=== PATIENT | female | born 1980 | race Caucasian/White ===

== ENCOUNTER 2018-02-15 14:24 | Emergency (ER) | payer OTHER ==
[~2018-02-15] VITALS: Ht 172.7 cm; Wt 93.0 kg
[2018-02-15 14:41] VITALS: BP 150/83
--- NOTE | 2018-02-15 14:54 | ER.PDOC ---
General Chief Complaint: Skin Rash/Abscess Stated Complaint: INSECT BITE Time seen by MD: 14:45 Source: patient Exam Limitations: no limitations History of Present Illness Initial Comments Pt noticed a red, painful area on left gluteal region, which has grown over the past week. Pt and tried to open that, with no success Timing/Duration: unsure, 1 week Location: LLE Quality: painful Identified Cause: no Allergies: Coded Allergies: Penicillins (Verified Allergy, Intermediate, Hives, 02/15/18) codeine (Verified Allergy, Intermediate, 02/15/18) Past Medical History Medical History: no pertinent history Surgical History: no surgical history LMP (females 10-50): 1 month Social History Smoking: non-smoker Alcohol Use: occassionally Drug Use: none Constitutional: no symptoms reported EENTM: no symptoms reported Respiratory: no symptoms reported Cardiovascular: no symptoms reported Gastrointestinal: no symptoms reported Genitourinary: no symptoms reported Musculoskeletal: no symptoms reported Skin: see HPI Psychiatric/Neurological: no symptoms reported Endocrine: no symptoms reported Hematologic/Lymphatic: no symptoms reported Physical Exam General Appearance: alert, no distress Skin: warm/dry, nml color, tender indurated area, with erythema Location: LLE, other (gluteal area on L) Character: asymmetric, polycyclic, erythematous With: warmth, tenderness, swelling, induration, inflammation Extremities: non-tender, nml ROM, no edema EENT: eyes nml inspection, lips/gums nml, pharynx nml Neck: trachea midline, no swelling Respiratory: no resp. distress, breath sounds nml CVS: reg. rate & rhythm, heart sounds nml Abdomen: non-tender, no organomegaly Rectal: non-tender NEURO/PSYCH: oriented x 3, CN's nml as tested, motor nml, sensation nml, mood/ affect nml Departure Time of Disposition: 14:52 Disposition: 01 HOME, SELF-CARE Impression: Primary Impression: Cellulitis Condition: Stable Patient Instructions: Cellulitis, [id number] Referrals: HORTENCIA DIAMOND PROFESSOR OF RADIOLOGY (PCP) PRIMARY CARE PROVIDER Duration or Time Spent with Pa: ARYA MONROY MD Feb 15, 2018 14:53
[2018-02-15 15:00] VITALS: BP 156/91
[2018-02-15 15:07] VITALS: BP 150/83
== END 2018-02-15 15:05 | disposition home or self-care (01) ==
LOC: ER 14:24
DX: L03.317 Cellulitis of buttock (principal); Z88.0 Allergy status to penicillin; Z88.5 Allergy status to narcotic agent
CPT/HCPCS: 99283

== ENCOUNTER → 2020-10-22 | Outpatient (CLI) | payer BC ==
--- NOTE | 2020-10-22 09:53 | DIREP ---
PROCEDURE:CT ABDOMEN/PELVIS W/O CONTRAST COMPARISON:None. INDICATIONS:R10.2 PELVIC AND PERINEAL PAIN TECHNIQUE:Axial images were created through the abdomen and pelvis without intravenous contrast material. Oral contrast was administered.Sagittal and coronal reconstructions were performed from source images. FINDINGS: LUNG BASES:Normal. No visible pulmonary or pleural disease. LIVER: Low-density liver indicates fatty infiltration. BILIARY:Gallstones without surrounding inflammation PANCREAS:Normal. No lesion, fluid collection, ductal dilatation, or atrophy. SPLEEN:Normal. No enlargement or focal lesion. ADRENALS:Normal. No mass or enlargement. URINARY TRACT:Normal. No focal lesions or hydronephrosis. AORTA/VASCULAR:Normal. No aneurysm. RETROPERITONEUM:Normal. No mass or adenopathy. BOWEL/MESENTERY:Normal. There is no intestinal obstruction, free fluid, free air or mesenteric inflammatory changes. ABDOMINAL WALL:Normal. No mass or hernia. PELVIC ORGANS:Normal. No visible mass. Pelvic organs appropriate for patient age. BONES:Normal for age. No bony lesion or acute fracture. OTHER:Negative. CONCLUSION: 1. Cholelithiasis without imaging evidence for cholecystitis. 2. Low-density liver indicates fatty infiltration. Dictated by: Fran Patino Jr. on 10/22/2020 at 08:45 AM Read in [place]
== END | disposition home or self-care (01) ==
LOC: RAD 09:24
PROVIDERS: ATTEND Obstetrics & Gynecology
DX: K80.20 Calculus of gallbladder without cholecystitis without obstruction (principal); K76.0 Fatty (change of) liver, not elsewhere classified; R10.2 Pelvic and perineal pain
CPT/HCPCS: 74176; Q9963

== ENCOUNTER → 2020-10-31 | Outpatient (CLI) | payer BC ==
--- NOTE | 2020-10-31 17:29 | DIREP ---
PROCEDURE:Digital Screening Mammogram TECHNIQUE:MLO, CC, and XCCL digital images of each breast are provided. Computer Assisted Detection (CAD) was utilized. COMPARISON:None. INDICATIONS:SCREENING BREAST COMPOSITION:Scattered areas fibroglandular density. FINDINGS:In the left breast, there is a focal asymmetry at the 11 o'clock anterior depth position. In the right breast, there are no grouped microcalcifications, masses, or architectural distortions to suggest malignancy. IMPRESSION:There is a focal asymmetry in the left breast. RECOMMENDATIONS:Additional imaging evaluation of the left breast is needed . Additional imaging should include: 1. Non magnified 90 true lateral view of the left breast. 2. Non magnified spot MLO view. 3. Non magnified spot CC view. Our facility will contact the patient for follow-up imaging. OVERALL FINAL ASSESSMENT:BI-RADS 0 - Incomplete: Need Additional Imaging Evaluation Note: This facility participates in a mammography screening patient reminder system. Dictated by: Duy Amaya M.D. on 10/31/2020 at 05:22 PM
== END | disposition home or self-care (01) ==
LOC: RAD 14:03
PROVIDERS: ATTEND Nurse Practitioner Family
DX: Z12.31 Encounter for screening mammogram for malignant neoplasm of breast (principal); N64.89 Other specified disorders of breast
CPT/HCPCS: 77067

== ENCOUNTER → 2020-11-15 | Outpatient (CLI) | payer BC ==
--- NOTE | 2020-11-15 15:13 | DIREP ---
PROCEDURE:MAMMO UNILATERAL-LT COMPARISON:[facility], , MAMMO BILATERAL SCREENING, 10/31/2020, 02:53 PM. INDICATIONS:Recall from screening for an asymmetric density in the left breast. FOCAL ASYMMETRY LT BREAST BREAST COMPOSITION:Scattered areas fibroglandular density. DIAGNOSTIC MAMMOGRAM: Left views: mediolateral and spot compression magnification (MLO, CC, and ML) Computer Assisted Detection (CAD) was utilized. Previously described asymmetric densities in the left breast although spurs normally on spot compression views. Sonography required to fully characterize and/or evaluate. IMPRESSION:No mammographic evidence of malignancy. RECOMMENDATIONS:Recommend whole left breast sonogram to fully assess . OVERALL FINAL ASSESSMENT:BI-RADS 0 - Incomplete: Need Additional Imaging Evaluation Dictated by: Bob Daigle DO on 11/15/2020 at 03:11 PM
== END | disposition home or self-care (01) ==
LOC: RAD 12:51
PROVIDERS: ATTEND Nurse Practitioner Family
DX: R92.8 Other abnormal and inconclusive findings on diagnostic imaging of breast (principal)

== ENCOUNTER 2021-07-27 03:55 | Observation (INO) | payer BC, OTHER ==
[2021-07-27] VITALS (14 sets, daily range): BP systolic 130–161; BP diastolic 73–95
[~2021-07-27] VITALS: Ht 170.2 cm; Wt 113.4 kg
--- NOTE | 2021-07-27 04:12 | ER.PDOC ---
General Chief Complaint: Requesting Medical Care Stated Complaint: NUMBNESS, VOMITING Time seen by MD: 03:59 Source: EMS Exam Limitations: clinical condition, intoxication History of Present Illness Initial Comments 40-year-old female found in the recliner by the daughter unresponsive, paramedics were called.Paramedics gave the patient 4 mg of Versed because of "tetany".According to the the patient has had 4-5 shots of alcohol, "maybe more". Character of AMS: unresponsive Allergies: Coded Allergies: Penicillins (Verified Allergy, Intermediate, Hives, 02/15/18) codeine (Verified Allergy, Intermediate, 02/15/18) Home Meds Reported Medications Lisinopril (LISINOPRIL) 20 Mg Tablet, 1 TAB PO DAILY, #30 TAB 5 Refills 07/27/21 Past Medical History Surgical History: no surgical history Social History Drug Use: none Review of Systems Constitutional: other (Unable to obtain ROS secondary to the patient's status) Physical Exam General Appearance: moderate distress, obtunded HEENT: no apparent trauma, ENT inspection nml, pharynx nml, airway intact, oral exam nml Neuro/Psych: other (Unresponsive to verbal or tactile stimulus) Cranial Nerves: other (Unable to perform cranial nerve exam) Cerebellar: other (Unable to perform cerebellar function exam) Peripheral Exam: reflexes nml, other (Occasionally the patient will move both the upper and lower extremities spontaneously.) Neck: supple Respiratory: no resp distress, breath sounds nml, resp distress CVS: reg rate & rhythm, heart sounds nml Abdomen: non-tender, no organomegaly, no distention Skin: color nml, no rash, warm/dry Extremities: non-tender, nml ROM, no pedal edema, calf tenderness Results/Orders Results/Orders Orders - TOR HAN MD Naloxone Hcl (Narcan) (07/27/21 04:16) Cbc With Auto Diff (07/27/21 04:13) Comprehensive Metabolic Panel (07/27/21 04:13) Creatine Kinase (07/27/21 04:13) Creatine Kinase Mb (07/27/21 04:13) Urinalysis (07/27/21 04:13) Salicylate(Ml) (07/27/21 04:13) Acetaminophen(Ml) (07/27/21 04:13) Alcohol(Ml) (07/27/21 04:13) Hcg Qualitative Serum (07/27/21 04:13) Ekg-Routine (07/27/21 04:13) Naloxone Hcl (Narcan) (07/27/21 04:13) Drug Scrn Med W Confirmation (07/27/21 04:13) Troponin I High Sensitivity (07/27/21 04:13) Ct Head Wo Contrast (07/27/21 04:13) Arriaza To Tribune (07/27/21 04:13) Ekg-Routine (07/27/21 04:18) Vital Signs Date Time Temp Pulse Resp B/P (MAP) Pulse Ox O2 Delivery O2 Flow Rate FiO2 07/27/21 04:06 97.3 107 18 97 07/27/21 04:06 97.3 107 18 130/85 (100) 97 Room Air 07/27/21 04:06 97.3 107 18 Administered Medications Medications (Trade) Dose Ordered Sig/Yessica Route PRN Reason Start Time Stop Time Status Last Admin Dose Admin Naloxone HCl (Narcan) 0.4 mg OT STAT IV 07/27/21 04:13 07/27/21 04:18 DC 07/27/21 04:18 0.4 MG Laboratory Tests Test 07/27/21 04:30 White Blood Count 8.0 10^3/uL (4.5-11.0) Red Blood Count 5.35 10^6/uL (4.00-5.20) H Hemoglobin 14.5 g/dL (12.0-15.0) Hematocrit 45.6 % (36.0-46.0) Mean Corpuscular Volume 85.2 fL (78-100) Mean Corpuscular Hemoglobin 27.1 pg (26-34) Mean Corpuscular Hemoglobin Concent 31.8 g/dL (33-36.5) L Red Cell Distribution Width 13.4 % (11.5-14.5) Platelet Count 281 10^3/uL (150-400) Mean Platelet Volume 9.6 fL (7.8-11.0) Neutrophils (%) (Auto) 75.8 % (41.0-85.0) Lymphocytes (%) (Auto) 18.9 % (24.0-44.0) L Monocytes (%) (Auto) 4.4 % (5.0-12.0) L Neutrophils # (Auto) 6.1 10^3/uL (1.8-7.7) Lymphocytes # (Auto) 1.51 10^3/uL1 (1.0-4.8) Monocytes # (Auto) 0.4 10^3/uL (0.3-0.8) Absolute Immature Granulocyte (auto 0.02 10^3 u/L (0-2) Absolute Eosinophils (auto) 0.0 10^3/uL (0.0-0.2) Immature Granulocytes % 0.30 % (0.00-0.50) Eosinophils % 0.3 % (0.0-5.0) Basophils % 0.3 % (0.0-0.2) H Basophils # 0.0 10^3/uL (0.0-0.1) Urine Collection Type RANDOM Urine Color YELLOW Urine Appearance CLEAR Urine Bilirubin NEGATIVE (NEGATIVE) Urine Ketones NEGATIVE (NEGATIVE) Urine Specific Tribune >=1.030 (1.005-1.030) Urine pH 5.0 (4.5-8.0) Urine Protein NEGATIVE (NEGATIVE) Urine Urobilinogen 0.2 E.U./dL (0.2) Urine Nitrate NEGATIVE (NEGATIVE) Urine Leukocyte Esterase NEGATIVE (NEGATIVE) Urine Glucose (Auto)(UA) NEGATIVE (NEGATIVE) Urine Blood NEGATIVE (NEGATIVE) Sodium Level 143 mmol/L (132-145) Potassium Level 3.9 mmol/L (3.6-5.2) Chloride Level 105.0 mmol/L (96-109) Carbon Dioxide Level 24.3 mmol/L (20.0-32) Anion Gap 17.6 Blood Urea Nitrogen 7 mg/dL (7-18) Creatinine 0.73 mg/dL (0.59-1.40) Estimated GFR () 106.8 (>/=60) Est GFR (CKD-EPI)(Non-Afr Monegasque) 88.3 (>/=60) BUN/Creatinine Ratio 9.0 Glucose Level 167 mg/dL (70-110) H Calcium Level 8.7 mg/dL (8.4-10.5) Total Bilirubin 0.3 mg/dL (0.2-1.0) Aspartate Amino Transferase (AST) 42 U/L (0-35) H Alanine Aminotransferase (ALT) 62 U/L (12-78) Alkaline Phosphatase 67 U/L (50-136) Total Creatine Kinase 103 U/L (26-192) Creatine Kinase MB 0.9 ng/mL (0.5-3.6) Troponin I High Sensitivity 5 ng/L (0-50) Total Protein 7.2 g/dL (6.4-8.2) Albumin 3.8 g/dL (3.4-5.0) Globulin 3.4 Albumin/Globulin Ratio 1.117 Serum HCG, Qualitative NEGATIVE (NEGATIVE) Salicylates Level < 2.8 mg/dL (2.8-20.0) L Urine Opiates Screen NEGATIVE (c/o300ng/mL) Urine Methadone Screen NEGATIVE (c/o300ng/mL) Acetaminophen Level < 3 ug/mL (10-30) L Urine Barbiturates Screen NEGATIVE (c/o200ng/mL) Urine Phencyclidine Screen NEGATIVE (c/o 25ng/mL) Ur Amphetamine/Methamphetamine NEGATIVE (uf2501ev/mL) Urine MDMA Screen (Ecstasy) NEGATIVE (c/o300ng/mL) Urine Benzodiazepines Screen PRESUMPTIVE POSITIVE Urine Cocaine Metabolite Screen NEGATIVE (c/o300ng/mL) Ur Tetrahydrocannabinol (THC) Scrn NEGATIVE (c/o 50ng/mL) Serum Alcohol 110 mg/dL (0-50) H Progress Progress Occasionally throughout the emergency department stay, the patient will moan she spontaneously moves the upper and lower extremities.It seems unlikely that the patient's decreased responsiveness is solely due to alcohol intake as her alcohol level was only 110. For this reason I think the patient needs to be admitted and observI called and spoke with Dr. Shaffer, who accepted the patient for admission. EKG/XRAY/CT/US EKG: NSR CT Comments: CT is normal ER DEPART Departure Time of Disposition: 05:46 Disposition: 02 SHORT TERM HOSPITAL Impression: Primary Impression: Alcohol intoxication Additional Impression: Unconsciousness Condition: Stable Referrals: MARCI YORK APRN,SATIN FINISHER-C (PCP) PRIMARY CARE PROVIDER Duration or Time Spent with Pa: Unknown Problem Qualifiers Primary Impression: Alcohol intoxication Complication of substance-induced condition: with unspecified complication Qualified Codes: F10.929 - Alcohol use, unspecified with intoxication, unspecified TOR HAN MD Jul 27, 2021 04:12
[2021-07-27] MEDS ORDERED: NARCAN IV STA (04:13)
[2021-07-27] MEDS ORDERED: NARCAN ONE (04:16)
--- NOTE | 2021-07-27 04:26 | PCM.EKG ---
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
[2021-07-27 04:35] LABS: BASOPHIL % 0.3 % (0.0-0.2); EOSINOPHIL % 0.3 % (0.0-5.0); LYMPHOCYTES # 1.51 10^3/uL1 (1.0-4.8); LYMPHOCYTES % 18.9 % (24.0-44.0); MEAN CORP HGB 27.1 pg (26-34); MONOCYTES # 0.4 10^3/uL (0.3-0.8); MONOCYTES % 4.4 % (5.0-12.0); NEUTROPHIL # 6.1 10^3/uL (1.8-7.7); NEUTROPHILS % 75.8 % (41.0-85.0); PLATELET COUNT 281 10^3/uL (150-400); RED CELL DISTRIBUTION WIDTH 13.4 % (11.5-14.5)
--- NOTE | 2021-07-27 04:41 | NUR ---
TO CT PATIENT TO CT VIA STRETCHER
[2021-07-27 04:55] LABS: BILIRUBIN,URINE NEGATIVE (NEGATIVE); UROBILINOGEN,URINE 0.2 E.U./dL (0.2)
[2021-07-27 05:04] LABS: CARBON DIOXIDE 24.3 mmol/L (20.0-32); GLUCOSE 167 mg/dL (70-110)
--- NOTE | 2021-07-27 05:20 | DIREP ---
PROCEDURE:CT HEAD OR BRAIN W/O CONTRAST COMPARISON:None. INDICATIONS:unresponsiveness TECHNIQUE:CT images were created without intravenous contrast. FINDINGS: VENTRICLES:The ventricles are normal in size and configuration. CEREBRUM:Normal cerebral morphology with appropriate ramirez white matter differentiation. CEREBELLUM:Negative. BRAINSTEM:Negative. BASAL CISTERNS:Negative. HEMORRHAGE:No MASS LESION:No ACUTE INFARCT:No SKULL:Normal. SINUSES:Normal. OTHER:None CONCLUSION: 1. No acute intracranial finding on noncontrast CT head. Dictated by: Roxanna Sandhu MD on 07/27/2021 at 05:17 AM
[2021-07-27] MEDS ORDERED: LISI20TA21 PO (05:47)
--- NOTE | 2021-07-27 07:40 | NUR ---
ARRIVAL PATIENT ARRIVED TO MED-SURG UNIT AT THIS TIME TO ROOM #341. RECEIVED REPORT, ASSUMED CARE FOR PATIENT AT THIS TIME.
--- NOTE | 2021-07-27 07:41 | NUR ---
ADMIT PT TAKEN TO MS VIA STRETCHER IN STABLE CONDITION, REPORT CALLED TO LIDA.
--- NOTE | 2021-07-27 07:45 | NUR ---
STATUS PATIENT IS UNRESPONSIVE AT THIS TIME. 02 IS 96% ON ROOM AIR WITH EQUAL CHEST RISE/FALL. RESPIRATIONS 18, NON-LABORED. UNAROUSABLE TO VOICE COMMANDS OR STERNAL RUB. NOTIFIED OF PATIENT CONDITION. MD AT BEDSIDE TO ASSESS PATIENT. RECEIVED ORDERS FOR STAT ABG AND TO TRANSFER TO ICU. CONTACTED CLAUDY PIEDRA IN ICU TO OBTAIN AN AVAILABLE BED.
--- NOTE | 2021-07-27 07:50 | NUR ---
RT AT THE BEDSIDE TO OBTAIN ABG. PATIENT NON-RESPONSIVE TO PAINFUL STIMULI.
--- NOTE | 2021-07-27 08:00 | NUR ---
STATUS PT ARRIVED TO ICU6 VIA BED. PT RESPS EVEN AND NON LABORED, PT PLACED ON BEDSIDE MONITOR, V/S STABLE. PT UNRESPONSIVE AT THIS TIME TO STERNAL RUB. PUPILS PEARLA. BED ALARM ACTIVATED. WILL CONT WITH PLAN OF CARE.
[2021-07-27 08:14] LABS: ABG PH 7.386 (7.350-7.450); BE(B) -1.4 mmol/L (-2.0-2.0); HCO3act 23.5 mmol/L (22.0-26.0); pO2 72.1 mmHg (80.0-100.0)
[2021-07-27] MEDS ORDERED: NS 1000ML 1,000 ML IV SCH (08:30)
--- NOTE | 2021-07-27 08:42 | NUR ---
STATUS PT AWAKE AT THIS TIME, ALERT AND ORIENTED X3 AND FOLLOWING COMMANDS. PT VOMITING. NO S/S OF DISTRESS NOTED. WILL CONT WITH PLAN OF CARE.
[2021-07-27] MEDS ORDERED: PEPCID IV SCH (09:00)
--- NOTE | 2021-07-27 09:06 | NUR ---
TRANSFER PATIENT TRANSFERRED TO ICU #6 AT THIS TIME. REPORT GIVEN TO CLAUDY PIEDRA. RELINQUISHED CARE FOR PATIENT AT THIS TIME. Addendum: 07/27/21 at 0913 by SAGE Rudolph LVN INCORRECT TIME STAMP. PATIENT TRANSFERRED TO ICU @0800.
[2021-07-27] MEDS ORDERED: ZOFRAN IV ONE (09:30)
--- NOTE | 2021-07-27 10:50 | NUR ---
IV ATTEMPT X2 BY THIS NURSE, ATTEMPT X2 BY Rodrigo FITZGERALD LVN, ATTEMPT X2 BY Parth NIETO, RN, AND ATTEMPT X2 BY Jessy VICKERS, RN. ATTEMPTS UNSUCCESSFUL. DR RODRÍGUEZ NOTIFIED, ORDER RECEIVED TO D/C IV FLUIDS, D/C IV PEPCID, AND D/C IV ZOFRAN. RECEIVED ORDER FOR PEPCID 20MG PO BID AND ZOFRAN ODT 4MG Q4. WILL CONT WITH PLAN OF CARE.
[2021-07-27] MEDS ORDERED: PEPCID PO SCH (11:00)
[2021-07-27] MEDS ORDERED: ZOFRAN ODT SL PRN (11:00)
--- NOTE | 2021-07-27 11:35 | PCM.HP ---
History of Present Illness Reason for Visit: Unresponsive History of Present Illness 40-year-old femaleWith history of hypertension found in the recliner by the daughter unresponsive, paramedics were called.Paramedics gave the patient 4 mg of Versed because of "tetany".According to the the patient has had 4-5 shots of alcohol, "maybe more". In the emergency room patient was given. When the patient arrived to the floor patient was seen the patient and assessed the patient. I went ahead and transfer the patient to intensive care unit for close monitoring as per patient patient has history of pretension she is a social drinker but she tried more than usual last night. Screen was positive for benzos patient received Versed by EMS prior to the emergency room. Patient hospitalized due to patient use basal insulin at home.Patient is being admitted hospital for further management. Past Medical History Cardiac: HTN Travel Hx EBOLA RISK:Travel to/contact w: No Review of Systems Constitutional: Other (Unable to obtain due to patient medical condition) Allergies: Coded Allergies: Penicillins (Verified Allergy, Intermediate, Hives, 02/15/18) codeine (Verified Allergy, Intermediate, 02/15/18) Scheduled Lisinopril (Lisinopril), 1 TAB PO DAILY, (Reported) Exam Vital Signs Vital Signs Date Time Temp Pulse Resp B/P (MAP) Pulse Ox O2 Delivery O2 Flow Rate FiO2 07/27/21 11:07 96 17 149/83 (105) 96 07/27/21 08:15 Room Air 07/27/21 04:06 97.3 General Appearance: Other (Not responding to verbal commands) HEENT: Atraumatic, PERRLA Respiratory: Clear to auscultation, Normal air movement Cardiovascular: Regular rate, Normal S1, Normal S2 Abdominal: Normal bowel sounds, Soft Extremities: No clubbing, No cyanosis Skin: No rash, No breakdown Neuro: Other (Not responding to verbal commands extremities) Psych/Mental Status: Other (Unable to assess) Assessment/Plan Assessment/Plan Assessment/Plan 40-year-old femaleWith history of hypertension found in the recliner by the soraida sanchez unresponsive, paramedics were called.Paramedics gave the patient 4 mg of Versed because of "tetany".According to the the patient has had 4-5 shots of alcohol, "maybe more". In the emergency room patient was given. When the patient arrived to the floor patient was seen the patient and assessed the patient. I went ahead and transfer the patient to intensive care unit for close monitoring as per patient patient has history of pretension she is a social drinker but she tried more than usual last night. Screen was positive for benzos patient received Versed by EMS prior to the emergency room. Patient hospitalized due to patient use basal insulin at home.Patient is being admitted hospital for further management. Plan We will transfer to ICU for close monitoring frequent neurochecks Keep n.p.o. until the patient is more awake IV fluids GI and DVT prophylaxis appropriate time patient presenting with potentially life-threatening condition, patient, reviewing labs, images, patient 70 minutes Problems: (1) Toxic encephalopathy ICD Code: G92.9 - Unspecified toxic encephalopathy SNOMED: 03055819 (2) Unresponsiveness ICD Code: R41.89 - Other symptoms and signs involving cognitive functions and awareness SNOMED: 969960796 (3) Hypertension ICD Code: I10 - Essential (primary) hypertension SNOMED: 94615628 (4) Alcohol intoxication ICD Code: F10.929 - Alcohol use, unspecified with intoxication, unspecified SNOMED: 05528583 ANNE SON MD Jul 27, 2021 11:34
--- NOTE | 2021-07-27 12:56 | NUR ---
AMA PT CAME TO DESK AND STATES, "WE WANT TO LEAVE NOW." THIS NURSE EDUCATED PT AND PT PHYSICIAN ROUNDING AND DISCHARGE PROCESS. REINFORCEMENT NEEDED. PT STATES, "I WANT TO GO HOME NOW TO MY BABIES." PT EDUCATED ON LEAVING AGAINST MEDICAL ADVICE PROCESS. VERBALIZED UNDERSTANDING. PT STATES, "YES I WANT TO LEAVE AMA." DR RODRÍGUEZ NOTIFIED.
--- NOTE | 2021-07-27 13:00 | NUR ---
AMA PT SIGNED AMA FORM AND OFF UNIT VIA AMBULATION WITH . NO S/S OF DISTRESS NOTED. PT ALERT AND ORIENTED X4. RELINQUISHED CARE OF PT.
--- NOTE | 2021-07-27 14:15 | PRM.DC ---
Subjective Subjective Date of Discharge: Jul 27, 2021 Time of Request to Discharge: 13:45 Subjective Patient was just admitted this morning after she was found unresponsive. Work- up was unremarkable including CT of the brain, lab work except for elevated alcohol level. Patient was unresponsive in the ER, received Narcan with no response. Patient was admitted to the ICU for close monitoring. Patient woke up in the ICU and currently awake and alert and wants to go home. Explained to the patient to continue to monitor at least overnight. Patient initially said okay. And then later I received a call from the STEREO COMPILER that the patient and her signed AGAINST MEDICAL ADVICE and left. For details of this admission please refer to my history and physical earlier today. ANNE SON MD Jul 27, 2021 14:15
== END 2021-07-27 13:00 | disposition home or self-care (01) ==
LOC: ER 03:55 → EDBD 03:55 → MS 05:52 → ICU 09:00
PROVIDERS: ADMIT Family Medicine; ATTEND Family Medicine
DX: G92.9 Unspecified toxic encephalopathy (principal); Z20.822 Contact with and (suspected) exposure to COVID-19; F10.129 Alcohol abuse with intoxication, unspecified; I10 Essential (primary) hypertension; Z88.0 Allergy status to penicillin; Z53.21 Procedure and treatment not carried out due to patient leaving prior to being seen by health care provider; Z79.899 Other long term (current) drug therapy
CPT/HCPCS: 36415; 36600; 70450; 80053; 80299 ×2; 80307; 80346; 81003; 82077; 82550; 82553; 82803; 84484; 84703; 85025; 87426; 93005; 96374; 99285; G0378 ×7; J2405; J3490; J7030; J2310

== ENCOUNTER 2021-12-22 00:30 | Emergency (ER) | payer OTHER ==
[~2021-12-22] VITALS: Ht 167.6 cm; Wt 108.9 kg
[~2021-12-22 00:30] MED LIST: LISI20TA21 PO
[2021-12-22 00:57] VITALS: BP 120/73
[2021-12-22] MEDS ORDERED: ZOFRAN IV PRN (01:00)
[2021-12-22] MEDS ORDERED: NS 1000ML 1,000 ML IV ONE (01:00)
--- NOTE | 2021-12-22 01:03 | ER.PDOC ---
General Chief Complaint: Alcohol/Substance Abuse Stated Complaint: INTOXICATED Time seen by MD: 00:45 Source: patient, family Exam Limitations: no limitations History of Present Illness Initial Comments pt BIBAMS for alcohol intoxincation. pt states that she has been drinking alot. family was concenrned bc she was having decreased responsiveness. no sob. had vomiting. upon arrivbla pt is answering all questions and does not want treatment. she is feeling better she says and wants to go home Timing/Duration: 4-6 hours Character of AMS: other (alcohol intoxication ) Allergies: Coded Allergies: Penicillins (Verified Allergy, Intermediate, Hives, 02/15/18) codeine (Verified Allergy, Intermediate, 02/15/18) Home Meds Reported Medications Lisinopril (LISINOPRIL) 20 Mg Tablet, 1 TAB PO DAILY, #30 TAB 5 Refills 07/27/21 Past Medical History Medical History: hypertension Surgical History: no surgical history Social History Drug Use: none Review of Systems All Other Systems: Reviewed and Negative Physical Exam General Appearance: mild distress HEENT: no apparent trauma Neuro/Psych: oriented x3, other (alcohol intox) Cranial Nerves: nml as tested Cerebellar: nml as tested Peripheral Exam: motor nml Neck: supple, non-tender Respiratory: no resp distress CVS: reg rate & rhythm Abdomen: non-tender Skin: color nml Extremities: non-tender Results/Orders Results/Orders Orders - GRANT FINK MD Cbc With Auto Diff (12/22/21 00:33) Comprehensive Metabolic Panel (12/22/21 00:33) Lipase (12/22/21 00:33) Urinalysis (12/22/21 00:33) Alcohol(Ml) (12/22/21 00:33) Drug Scrn Med W Confirmation (12/22/21 00:33) 0.9 % Sodium Chloride (Ns 1000ml) (12/22/21 01:00) Troponin I High Sensitivity (12/22/21 00:34) Ekg-Routine (12/22/21 00:34) Ondansetron Hcl/Pf (Zofran) (12/22/21 01:00) Progress Progress Pt is signing AMA paper. she is capable of making her own decisions. family understands and wants to take her home ER DEPART Departure Time of Disposition: 01:02 Disposition: 01 HOME / SELF CARE / HOMELESS Impression: Primary Impression: Alcohol intoxication Condition: Against Medical Advice Referrals: MARCI YORK APRN, FNP-C (PCP) PRIMARY CARE PROVIDER Duration or Time Spent with Pa: GRANT WAYNE MD December 22, 2021 01:03
--- NOTE | 2021-12-22 01:05 | NUR ---
Pt refused treatment , blood draw , assessment, pt combative swinging arms at staff, pt alert oriented x4 and capable of making her own decisions. Pt signed out AMA.
--- NOTE | 2021-12-22 01:05 | NUR ---
IV 20 lupe removed form Left AC.
== END 2021-12-22 01:05 | disposition home or self-care (01) ==
LOC: ER 00:30 → EDBD 00:30 → ER 01:05
DX: F10.129 Alcohol abuse with intoxication, unspecified (principal); I10 Essential (primary) hypertension; Z88.0 Allergy status to penicillin; Z88.5 Allergy status to narcotic agent
CPT/HCPCS: 93005; 99281; 99284

== ENCOUNTER 2022-01-23 16:09 | Day surgery (SDC) | payer BC ==
[~2022-01-23] VITALS: Ht 165.1 cm; Wt 90.3 kg
--- NOTE | 2022-01-23 16:20 | NUR ---
ARRIVAL PT AMBULATES TO ED3 WITH C/O EPIGASTRIC, RLQ, AND LLQ PAIN THAT STARTED THIS MORNING. PT C/O N/V THAT STARTED THIS MORNING, DESCRIBED GREEN BILE. PT STATES LAST EMESIS EPISODE WAS IN THE ED LOBBY. PT RATES ABD PAIN 6/10, DESCRIBED SHARP. PTS LAST BM WAS YESTERDAY, DESCRIBES "COLETTE". PTS AFEBRILE 98.0. VITALS OBTAINED. NOTIFIED OF PTS ARRIVAL.
[2022-01-23 16:29] VITALS: BP 136/77
[2022-01-23] MEDS ORDERED: MORPHINE SULFATE IV STA (16:39)
[2022-01-23] MEDS ORDERED: ZOFRAN ONE (16:49)
[2022-01-23] MEDS ORDERED: MORPHINE SULFATE ONE (16:51)
[2022-01-23 16:53] LABS: BASOPHIL % 0.1 % (0.0-0.2); EOSINOPHIL % 0.1 % (0.0-5.0); LYMPHOCYTES # 1.01 10^3/uL1 (1.0-4.8); LYMPHOCYTES % 7.1 % (24.0-44.0); MEAN CORP HGB 26.8 pg (26-34); MONOCYTES # 0.4 10^3/uL (0.3-0.8); NEUTROPHIL # 12.7 10^3/uL (1.8-7.7); NEUTROPHILS % 89.6 % (41.0-85.0); PLATELET COUNT 287 10^3/uL (150-400); RED CELL DISTRIBUTION WIDTH 13.3 % (11.5-14.5)
[2022-01-23] MEDS ORDERED: ZOFRAN IV ONE (17:00)
[2022-01-23 17:04] LABS: BILIRUBIN,URINE NEGATIVE (NEGATIVE); UROBILINOGEN,URINE 0.2 E.U./dL (0.2)
[2022-01-23 17:15] LABS: CARBON DIOXIDE 28.5 mmol/L (20.0-32)
[2022-01-23 17:44] VITALS: BP 119/74
--- NOTE | 2022-01-23 18:13 | ER.PDOC ---
General Chief Complaint: Abdomen Pain Stated Complaint: ABD PAIN Time seen by MD: 16:35 Source: patient Exam Limitations: no limitations History of Present Illness Initial Comments 41-year-old male comes here with right lower quadrant abdominal pain that started yesterday. No nausea vomiting. No diarrhea. No sick contact. No trauma. She took Prilosec at home thinking that that was causing her symptoms but it did not help. Symptoms are moderate and progressive and worse with m ovement. Allergies: Coded Allergies: Penicillins (Verified Allergy, Intermediate, Hives, 02/15/18) codeine (Verified Allergy, Intermediate, 02/15/18) Home Meds Reported Medications Lisinopril (LISINOPRIL) 20 Mg Tablet, 1 TAB PO DAILY, #30 TAB 5 Refills 07/27/21 Vital Signs First Vital Signs Date Time Temp Pulse Resp B/P (MAP) Pulse Ox O2 Delivery O2 Flow Rate FiO2 01/23/22 16:29 98.0 61 20 01/23/22 16:29 136/77 (96) 99 Room Air* 0 21 Last Vital Signs Date Time Temp Pulse Resp B/P (MAP) Pulse Ox O2 Delivery O2 Flow Rate FiO2 01/23/22 17:44 98.0 68 20 119/74 (89) 99 Room Air* 0 21 Past Medical History Medical History: hypertension Surgical History: no surgical history LMP (females 10-50): this week Family History Significant Family History: no pertinent family hx Social History Smoking: non-smoker Alcohol Use: occassionally Drug Use: none Reviewed Nursing Reviewed: Vital Signs, Abn. Noted, Nursing Assessment Constitutional: denies no symptoms reported, denies see HPI, denies chills, denies diaphoresis, denies fever, denies malaise, denies weakness, denies other EENTM: denies no symptoms reported, denies see HPI, denies eye pain, denies blurred vision, denies tearing, denies double vision, denies ear pain, denies ear discharge, denies nose pain, denies nose congestion, denies throat pain, denies throat swelling, denies mouth pain, denies mouth swelling, denies other Respiratory: denies no symptoms reported, denies see HPI, denies cough, denies orthopnea, denies shortness of breath, denies SOB with exertion, denies SOB at rest, denies stridor, denies wheezing, denies other Cardiovascular: denies no symptoms reported, denies see HPI, denies chest pain, denies edema, denies irregular heart rate, denies lightheadedness, denies palpitations, denies syncope, denies other Gastrointestinal: denies no symptoms reported, denies see HPI, denies abdomen distended; abdominal pain; denies blood streaked bowels, denies constipated, denies diarrhea, denies difficulty swallowing; nausea; denies poor appetite, denies poor fluid intake, denies rectal bleeding; vomiting; denies other Genitourinary: denies no symptoms reported, denies see HPI, denies burning, denies dysuria, denies discharge, denies frequency, denies flank pain, denies hematuria, denies incontinence, denies pain, denies urgency, denies other Musculoskeletal: denies no symptoms reported, denies see HPI, denies back pain, denies gout, denies joint pain, denies joint swelling, denies muscle pain, denies muscle stiffness, denies neck pain, denies other Skin: denies no symptoms reported, denies see HPI, denies change in color, den ies change in hair/nails, denies dryness, denies lesions, denies lumps, denies rash, denies other Psychiatric/Neurological: denies no symptoms reported, denies see HPI, denies anxiety, denies depressed, denies emotional problems, denies headache, denies numbness, denies paresthesia, denies pre-existing deficit, denies seizure, denies tingling, denies tremors, denies weakness, denies other Endocrine: denies no symptoms reported, denies see HPI, denies excessive swe ating, denies flushing, denies intolerance to cold, denies intolerance to heat, denies increased hunger, denies increased thrist, denies increased urine, denies unexplained weight gain, denies unexplaned weight loss, denies other Hematologic/Lymphatic: denies no symptoms reported, denies see HPI, denies anemia, denies blood clots, denies easy bleeding, denies easy bruising, denies swollen glands, denies other All Other Systems: Reviewed and Negative Physical Exam General Appearance: Anxious, Moderate Distress HEENT: PERRL/EOMI Neck: Non-Tender, Full Range of Motion, Supple Respiratory: chest non-tender, lungs clear, normal breath sounds, no respiratory distress Cardiovascular: Normal Peripheral Pulses, Regular Rate, Rhythm, No Edema, No Gallop, No JVD, No Murmur Gastrointestinal: No Organomegaly, No Pulsatile Mass, Hypoactive bowel sounds, Soft, Tenderness, McBurneys point tender Back: Normal Inspection, No CVA Tenderness Extremities: Normal Range of Motion, Non-Tender, Normal Inspection, No Pedal Edema, No Calf Tenderness, Normal Capillary Refill Neurologic/Psychiatric: manager market development II-XII NML as Tested, No Motor/Sensory Deficits, Alert, Normal Mood/Affect, Oriented x 3 Skin: Normal Color, Warm/Dry Lymphatic: No Adenopathy Results/Orders Results/Orders Orders - SHLOMO GRAVES MD Cbc With Auto Diff (01/23/22 16:39) Comprehensive Metabolic Panel (01/23/22 16:39) Amylase (01/23/22 16:39) Lipase (01/23/22 16:39) PT (01/23/22 16:39) Partial Thromboplastin Time. (01/23/22 16:39) Urinalysis (01/23/22 16:39) Saline Lock (01/23/22 16:39) Morphine Sulfate (Morphine Sulfate) (01/23/22 16:39) Ondansetron Hcl/Pf (Zofran) (01/23/22 17:00) Ondansetron Hcl/Pf (Zofran) (01/23/22 16:49) Morphine Sulfate (Morphine Sulfate) (01/23/22 16:51) Ct Abd/Pel With Iv Contrast (01/23/22 17:23) Blood Culture (01/23/22 19:01) Cefepime Hcl (Maxipime) (01/23/22 21:00) Vital Signs Date Time Temp Pulse Resp B/P (MAP) Pulse Ox O2 Delivery O2 Flow Rate FiO2 01/23/22 17:44 98.0 68 20 119/74 (89) 99 Room Air* 0 21 01/23/22 16:29 98.0 61 20 99 01/23/22 16:29 98.0 61 20 136/77 (96) 99 Room Air* 0 21 01/23/22 16:29 98.0 61 20 Administered Medications Medications (Trade) Dose Ordered Sig/Yessica Route PRN Reason Start Time Stop Time Status Last Admin Dose Admin Morphine Sulfate (Morphine Sulfate) 4 mg STAT STAT IV 01/23/22 16:39 01/23/22 16:42 DC 01/23/22 17:01 4 MG Ondansetron HCl (Zofran) 4 mg Q4H ONCE IV 01/23/22 17:00 01/23/22 17:01 DC 01/23/22 17:01 4 MG Laboratory Tests Test 01/23/22 16:23 01/23/22 16:45 Urine Collection Type UNKNOWN Urine Color YELLOW Urine Appearance CLEAR Urine Bilirubin NEGATIVE (NEGATIVE) Urine Ketones NEGATIVE (NEGATIVE) Urine Specific Almond 1.025 (1.005-1.030) Urine pH 5.5 (4.5-8.0) Urine Protein NEGATIVE (NEGATIVE) Urine Urobilinogen 0.2 E.U./dL (0.2) Urine Nitrate NEGATIVE (NEGATIVE) Urine Leukocyte Esterase TRACE (NEGATIVE) H Urine Glucose (Auto)(UA) NEGATIVE (NEGATIVE) Urine Blood 2+ (NEGATIVE) H Urine RBC 2-5 RBC/HPF (NONE SEEN) Urine WBC 0-2 WBC/HPF (0-2) Urine Squamous Epithelial Cells FEW (<=FEW) Urine Bacteria NONE SEEN (NONE SEEN) White Blood Count 14.2 10^3/uL (4.5-11.0) H Red Blood Count 5.34 10^6/uL (4.00-5.20) H Hemoglobin 14.3 g/dL (12.0-15.0) Hematocrit 44.7 % (36.0-46.0) Mean Corpuscular Volume 83.7 fL (78-100) Mean Corpuscular Hemoglobin 26.8 pg (26-34) Mean Corpuscular Hemoglobin Concent 32.0 g/dL (33-36.5) L Red Cell Distribution Width 13.3 % (11.5-14.5) Platelet Count 287 10^3/uL (150-400) Mean Platelet Volume 9.6 fL (7.8-11.0) Neutrophils (%) (Auto) 89.6 % (41.0-85.0) H Lymphocytes (%) (Auto) 7.1 % (24.0-44.0) L Monocytes (%) (Auto) 3.0 % (5.0-12.0) L Neutrophils # (Auto) 12.7 10^3/uL (1.8-7.7) H Lymphocytes # (Auto) 1.01 10^3/uL1 (1.0-4.8) Monocytes # (Auto) 0.4 10^3/uL (0.3-0.8) Absolute Immature Granulocyte (auto 0.02 10^3 u/L (0-2) Absolute Eosinophils (auto) 0.0 10^3/uL (0.0-0.2) Immature Granulocytes % 0.10 % (0.00-0.50) Eosinophils % 0.1 % (0.0-5.0) Basophils % 0.1 % (0.0-0.2) Basophils # 0.0 10^3/uL (0.0-0.1) Prothrombin Time 10.2 SEC (9.1-11.5) Prothrombin Time INR (Non-Therap) 1.0 Activated Partial Thromboplast Time 23.7 SEC (22.5-33.1) Sodium Level 140 mmol/L (132-145) Potassium Level 3.5 mmol/L (3.6-5.2) L Chloride Level 105.0 mmol/L (96-109) Carbon Dioxide Level 28.5 mmol/L (20.0-32) Anion Gap 10.0 Blood Urea Nitrogen 8 mg/dL (7-18) Creatinine 0.85 mg/dL (0.59-1.40) Estimated GFR () 89.2 (>/=60) Est GFR (CKD-EPI)(Non-Afr Congolese) 73.7 (>/=60) BUN/Creatinine Ratio 9.0 Glucose Level 118 mg/dL (70-110) H Calcium Level 9.1 mg/dL (8.4-10.5) Total Bilirubin 0.5 mg/dL (0.2-1.0) Aspartate Amino Transferase (AST) 25 U/L (0-35) Alanine Aminotransferase (ALT) 40 U/L (12-78) Alkaline Phosphatase 85 U/L (50-136) Total Protein 7.5 g/dL (6.4-8.2) Albumin 3.8 g/dL (3.4-5.0) Globulin 3.7 Albumin/Globulin Ratio 1.027 Amylase Level 42 U/L (25-115) Lipase 97 U/L (114-286) L Progress Progress CT of the abdomen and pelvis consistent with acute cholecystitis. We will start the patient on IV Zosyn. Surgical consultation requested. Admit to the medical team. EKG/XRAY/CT/US CT Comments: CT of abdomen/pelvis-distended gallbladder with stones possible acute gabriela ER DEPART Departure Time of Disposition: 19:04 Disposition: 09 ADMITTED INPATIENT Impression: Primary Impression: Acute cholecystitis Condition: Stable Referrals: MARCI YORK APRN, FNP-C (PCP) PRIMARY CARE PROVIDER Duration or Time Spent with Pa: 45 SHLOMO GRAVES MD Jan 23, 2022 18:13
--- NOTE | 2022-01-23 18:27 | DIREP ---
PROCEDURE:CT ABDOMEN/PELVIS W/ CONTRAST COMPARISON:None. INDICATIONS:RLQ pain, high WBC TECHNIQUE:Axial images were created through the abdomen and pelvis with non-ionic intravenous contrast material. No oral contrast was administered. Sagittal and coronal reconstructions were performed from source images. FINDINGS: LUNG BASES:Normal. No visible pulmonary or pleural disease. LIVER:Diffusely diminished hepatic attenuation consistent with hepatic steatosis. BILIARY:Gallbladder distended with multiple calcified gallstones. PANCREAS:Normal. No lesion, fluid collection, ductal dilatation, or atrophy. SPLEEN:Normal. No enlargement or focal lesion. ADRENALS:Normal. No mass or enlargement. URINARY TRACT:Left renal cortical cysts measuring 1.1 cm with adjacent left renal cortical hypodensity too small to characterize. Symmetric renal enhancement. No obstructive uropathy. AORTA/VASCULAR:Normal. No aneurysm. RETROPERITONEUM:Normal. No mass or adenopathy. BOWEL/MESENTERY:The appendix is visualized and appears normal. There is no intestinal obstruction, free fluid, free air or mesenteric inflammatory changes. ABDOMINAL WALL:Normal. No mass or hernia. PELVIC ORGANS:Normal. No visible mass. Pelvic organs appropriate for patient age. Tubal closure device. Trace pelvic free fluid within physiologic limits of normal for premenopausal female. BONES:Normal for age. No bony lesion or acute fracture. OTHER:Negative. CONCLUSION: 1. Distended gallbladder with gallstones, correlate for clinical findings of cholecystitis. Right upper quadrant ultrasound may be helpful to further evaluate. 2. Left renal cortical cyst and other hypodensity too small to characterize. 3. Normal appendix. Dictated by: Benson Quesada M.D. on 01/23/2022 at 06:22 PM
[2022-01-23 18:45] VITALS: BP 136/101
[2022-01-23] MEDS ORDERED: TYLENOL PO PRN (19:30)
[2022-01-23] MEDS ORDERED: AMBIEN PO PRN (19:30)
[2022-01-23] MEDS ORDERED: TORADOL IV ONE (19:30)
[2022-01-23 19:45] VITALS: BP 137/71
[2022-01-23] MEDS ORDERED: ESCI10TA93 PO (19:45)
[2022-01-23] MEDS ORDERED: TORADOL ONE (19:45)
[2022-01-23] MEDS ORDERED: ZOFRAN IV PRN (20:00)
[2022-01-23] MEDS ORDERED: NS 100ML 100 ML IV ONE (20:02)
[2022-01-23 20:05] VITALS: BP 136/112
--- NOTE | 2022-01-23 20:15 | NUR ---
ARRIVAL TO ICU 1 RECEIVED REPORT FROM CLAUDY RENO. PT TRANSFERRED TO ICU-1 VIA WHEELCHAIR BY CLAUDY JORDAN. NO APPARENT ACUTE DISTRESS NOTED. PT TRANSFERRED SELF FROM WHEELCHAIR TO BED WITH NO ASSISTANCE. ASSUMED CARE.
--- NOTE | 2022-01-23 20:31 | PRM.CONS ---
VTE VTE Risk Total Score: 1 VTE Risk Score VTE Risk: Score 0-1 = Low Risk (Aggressive mobilization; early ambulation; no VTE prophylaxis required) Score 2: Moderate Risk (Intermittent/Pneumatic Compression Device OR Lovenox/Heparin/Coumadin) Score 3-4: High Risk (Intermittent/Pneumatic Compression Device AND Lovenox/Heparin/Coumadin) Score > or =5: Highest Risk (Intermittent/Pneumatic Compression Device AND Lovenox/Heparin/Coumadin) VTE VTE Present on Admission: No Currently receiving anticoagul: No VTE Risk Total Score: 1 VTE VTE Risk Total Score: 1 LAZARA OTT MD Jan 23, 2022 20:31
[2022-01-23] MEDS: MAXIPIME 1 GM in NS 100ML 100 ML IV SCH (21:04)
[2022-01-23] MEDS ORDERED: NS 250ML 250 ML ONE (21:06)
[2022-01-24] VITALS (23 sets, daily range): BP systolic 106–142; BP diastolic 49–86
--- NOTE | 2022-01-24 04:31 | NUR ---
SURGICAL WIPE COMPLETE
[2022-01-24 04:48] LABS: CARBON DIOXIDE 26.8 mmol/L (20.0-32)
[2022-01-24 04:57] LABS: BASOPHIL % 0.2 % (0.0-0.2); EOSINOPHIL # 0.3 10^3/uL (0.0-0.2); EOSINOPHIL % 2.8 % (0.0-5.0); LYMPHOCYTES # 2.33 10^3/uL1 (1.0-4.8); LYMPHOCYTES % 23.5 % (24.0-44.0); MEAN CORP HGB 26.8 pg (26-34); MONOCYTES # 0.9 10^3/uL (0.3-0.8); MONOCYTES % 8.6 % (5.0-12.0); NEUTROPHIL # 6.4 10^3/uL (1.8-7.7); NEUTROPHILS % 64.7 % (41.0-85.0); PLATELET COUNT 280 10^3/uL (150-400); RED CELL DISTRIBUTION WIDTH 13.7 % (11.5-14.5)
[2022-01-24] MEDS: MORPHINE SULFATE IV PRN ×2 (06:48→15:41)
[2022-01-24] MEDS ORDERED: KCL 20MEQ/100ML 100 ML IV ONE (08:00)
[2022-01-24] MEDS ORDERED: NS 100ML 100 ML IV ONE (08:44)
[2022-01-24] MEDS: FLAGYL 500MG/ 100 ML NS 100 ML IV SCH ×2 (08:49→15:40)
[2022-01-24] MEDS: MAXIPIME 1 GM in NS 100ML 100 ML IV SCH (10:02)
--- NOTE | 2022-01-24 10:53 | PCM.HP ---
History of Present Illness Reason for Visit: Abdominal pain History of Present Illness 41-year-old Female with past medical history of hypertension comes here with right lower quadrant abdominal pain that started The day before admission. No nausea vomiting. No diarrhea. No sick contact. No trauma. She took Prilosec at home thinking that that was causing her symptoms but it did not help. Symptoms are moderate and progressive and worse with movement. Work-up in the emergency room including CT abdomen pelvis showed Cholelithiasis with acute cholecystitis. Surgeon consulted. Patient is on IV antibiotics. Patient is being in the hospital for further management. Past Medical History Cardiac: HTN Past Surgical History: No pertinent hx Past Social History Smoke: No Alcohol: social Drugs: None Travel Hx EBOLA RISK:Travel to/contact w: No Review of Systems Constitutional: Other Gastrointestinal: Nausea, Abdominal Pain Other Review of 14 systems negative except was mentioned above. Allergies: Coded Allergies: Penicillins (Verified Allergy, Intermediate, Hives, 02/15/18) codeine (Verified Allergy, Intermediate, 02/15/18) Scheduled Escitalopram Oxalate (Escitalopram Oxalate), 1 TAB PO DAILY, (Reported) Lisinopril (Lisinopril), 1 TAB PO DAILY, (Reported) Exam Vital Signs Vital Signs Date Time Temp Pulse Resp B/P (MAP) Pulse Ox O2 Delivery O2 Flow Rate FiO2 01/24/22 10:37 65 16 96 Room Air* 0 21 01/24/22 08:06 97.8 132/67 (88) General Appearance: Alert, Oriented X3 HEENT: Atraumatic, PERRLA Respiratory: Clear to auscultation, Normal air movement Cardiovascular: Regular rate, Normal S1, Normal S2 Abdominal: Soft, Other (Tender) Extremities: No clubbing, No cyanosis Skin: No lesions Neuro: Normal speech, Normal tone Psych/Mental Status: Mental status NL, Mood NL Assessment/Plan Assessment/Plan Assessment/Plan 41-year-old female with history of hypertension presenting with abdominal pain. Work-up in the emergency room patient was found to have cholelithiasis with acute cholecystitis. Plan Admit Keep n.p.o. IV fluids Monitor electrolytes/replace potassium IV antibiotics Surgeon consulted for further management Reconcile home meds DVT prophylax SCDs while in bed Expect length of stay 1 midnight if patient stable and cleared by surgeon. Problems: (1) Acute cholecystitis Status: Acute ICD Code: K81.0 - Acute cholecystitis SNOMED: 73574177 (2) Hypertension ICD Code: I10 - Essential (primary) hypertension SNOMED: 17116168 (3) Hypokalemia ICD Code: E87.6 - Hypokalemia SNOMED: [id number] ANNE SON MD Jan 24, 2022 10:53
--- NOTE | 2022-01-24 11:10 | NUR ---
DISCHARGE PLAN- HOME WITH SPOUSE CM AT BEDSIDE AND VISITED WITH PATIENT AND SPOUSE REGARDING D/C PLAN. PATIENT LIVES AT HOME WITH HER SPOUSE WHO IS VERY SUPPORTIVE. SHE IS IND OF ADLS. THE ONLY DME IN THE HOME IS A SPHYGMOMETER. PATIENT PCP IS Cary CHACON. PER PATIENT SHE DOES NOT HAVE ANY NEEDS AT THIS TIME. DISCHARGE PLAN IS FOR PATIENT TO D/C BACK HOME TO ROUTINE CARE WITH HER SPOUSE.
[2022-01-24] MEDS ORDERED: LACTATED RINGERS 1,000 ML ONE ×3 (11:31→15:10)
--- NOTE | 2022-01-24 11:40 | NUR ---
TRANSFER TO OR SUMMER RN HERE TO TRANSFER PATIENT TO OPERATING ROOM. REPORT GIVEN. PATIENT IS AWAKE AND ALERT. VITAL SIGNS STABLE. POTASSIUM INFUSING IN THE RIGHT AC @ 30ML/HR VIA PUMP PER ORDERS. SITE IS CDI WITHOUT S/S OF INFECTION OR INFILTRATION NOTED. TRANSFERRED VIA BED WITHOUT S/S OF ACUTE DISTRESS NOTED.
[2022-01-24] MEDS ORDERED: SODIUM CHLORIDE IRR BAG IR ONE ×2 (11:47→13:39)
[2022-01-24] MEDS ORDERED: SODIUM CHLORIDE IRR BOTTLE IR ONE (11:47)
[2022-01-24] MEDS ORDERED: XYLOCAINE 1%-EPI 1:100,000 ONE (11:48)
[2022-01-24] MEDS ORDERED: SENSORCAINE-MPF 0.25% VIAL ONE (11:48)
[2022-01-24] MEDS ORDERED: DECADRON ONE (11:56)
[2022-01-24] MEDS ORDERED: XYLOCAINE 2% 5ML VIAL ONE (11:56)
[2022-01-24] MEDS ORDERED: ZOFRAN ONE (11:56)
[2022-01-24] MEDS ORDERED: DILAUDID ONE (11:56)
[2022-01-24] MEDS ORDERED: DIPRIVAN IV ONE (11:57)
[2022-01-24] MEDS ORDERED: ZEMURON IV ONE (11:57)
[2022-01-24] MEDS ORDERED: SUBLIMAZE ONE (11:57)
[2022-01-24] MEDS ORDERED: BRIDION IV ONE (11:58)
[2022-01-24] MEDS ORDERED: OFIRMEV 100 ML IV ONE (11:58)
[2022-01-24] MEDS ORDERED: TORADOL ONE (11:58)
--- NOTE | 2022-01-24 14:20 | PRM.CONS ---
CONSULTATION CONSULTATION Indication ; Patient began having abdominal pain yesterday, that worsened throughout the day. She did have some mild nausea and vomiting. She did have some pain in her right upper quadrant and around to her back. She was found to have acute cholecystitis, with cholelithiasis/biliary sludge, and edema of the wall. She was admitted for antibiotics, Prior to cholecystectomy HPI: This patient began having right upper quadrant/epigastric pain yesterday morning. It progressed throughout the day, with some nausea and vomiting, and some mild pain in her mid back. This is her first episode of such pain. She does not remember what she ate prior to the episode. She was admitted through the emergency room to medicine, with a consultation for surgery. The on-call surgeon put her in for hydration and antibiotics, and I saw her this morning. She continues to have acute pain. CT scan showed biliary sludge/cholelithiasis, as well as acute cholecystitis with edema in the wall. Subjective: Patient continues to Complaint of right upper quadrant/epigastric pain and mid back pain, as well as some nausea. There has not been any emesis. She does not recall having an episode of this pain before. Laboratory Tests Test 01/23/22 16:23 01/23/22 16:45 01/24/22 00:00 01/24/22 04:00 Urine Collection Type UNKNOWN Urine Color YELLOW Urine Appearance CLEAR Urine Bilirubin NEGATIVE Urine Ketones NEGATIVE Urine Specific [place] 1.025 Urine pH 5.5 Urine Protein NEGATIVE Urine Urobilinogen 0.2 E.U./dL Urine Nitrate NEGATIVE Urine Leukocyte Esterase TRACE Urine Glucose (Auto)(UA) NEGATIVE Urine Blood 2+ Urine RBC 2-5 RBC/HPF Urine WBC 0-2 WBC/HPF Urine Squamous Epithelial Cells FEW Urine Bacteria NONE SEEN White Blood Count 14.2 10^3/uL 9.9 10^3/uL Red Blood Count 5.34 10^6/uL 5.08 10^6/uL Hemoglobin 14.3 g/dL 13.6 g/dL Hematocrit 44.7 % 44.1 % Mean Corpuscular Volume 83.7 fL 86.8 fL Mean Corpuscular Hemoglobin 26.8 pg 26.8 pg Mean Corpuscular Hemoglobin Concent 32.0 g/dL 30.8 g/dL Red Cell Distribution Width 13.3 % 13.7 % Platelet Count 287 10^3/uL 280 10^3/uL Mean Platelet Volume 9.6 fL 10.1 fL Neutrophils (%) (Auto) 89.6 % 64.7 % Lymphocytes (%) (Auto) 7.1 % 23.5 % Monocytes (%) (Auto) 3.0 % 8.6 % Neutrophils # (Auto) 12.7 10^3/uL 6.4 10^3/uL Lymphocytes # (Auto) 1.01 10^3/uL1 2.33 10^3/uL1 Monocytes # (Auto) 0.4 10^3/uL 0.9 10^3/uL Absolute Immature Granulocyte (auto 0.02 10^3 u/L 0.02 10^3 u/L Absolute Eosinophils (auto) 0.0 10^3/uL 0.3 10^3/uL Immature Granulocytes % 0.10 % 0.20 % Eosinophils % 0.1 % 2.8 % Basophils % 0.1 % 0.2 % Basophils # 0.0 10^3/uL 0.0 10^3/uL Prothrombin Time 10.2 SEC Prothrombin Time INR (Non-Therap) 1.0 Activated Partial Thromboplast Time 23.7 SEC Sodium Level 140 mmol/L 141 mmol/L Potassium Level 3.5 mmol/L 3.3 mmol/L Chloride Level 105.0 mmol/L 107.0 mmol/L Carbon Dioxide Level 28.5 mmol/L 26.8 mmol/L Anion Gap 10.0 10.5 Blood Urea Nitrogen 8 mg/dL 8 mg/dL Creatinine 0.85 mg/dL 0.71 mg/dL Estimated GFR () 89.2 109.8 Est GFR (CKD-EPI)(Non-Afr [place]) 73.7 90.7 BUN/Creatinine Ratio 9.0 11.0 Glucose Level 118 mg/dL 95 mg/dL Calcium Level 9.1 mg/dL 8.6 mg/dL Total Bilirubin 0.5 mg/dL Aspartate Amino Transf (AST/SGOT) 25 U/L Alanine Aminotransferase (ALT/SGPT) 40 U/L Alkaline Phosphatase 85 U/L Total Protein 7.5 g/dL Albumin 3.8 g/dL Globulin 3.7 Albumin/Globulin Ratio 1.027 Amylase Level 42 U/L Lipase 97 U/L Serum HCG, Qualitative NEGATIVE SARS-CoV-2 Antigen (Rapid) NEGATIVE Current Medications Medications (Trade) Dose Ordered Sig/Yessica Route PRN Reason Start Time Stop Time Status Last Admin Dose Admin Morphine Sulfate (Morphine Sulfate) 4 mg STAT STAT IV 01/23/22 16:39 01/23/22 16:42 DC 01/23/22 17:01 Ondansetron HCl (Zofran) 4 mg Q4H ONCE IV 01/23/22 17:00 01/23/22 17:01 DC 01/23/22 17:01 Ondansetron HCl (Zofran) 4 mg STK-MED ONCE .ROUTE 01/23/22 16:49 01/23/22 16:50 DC Morphine Sulfate (Morphine Sulfate) 2 mg STK-MED ONCE .ROUTE 01/23/22 16:51 01/23/22 16:52 DC Cefepime HCl 1 gm/ Sodium Chloride 100 ml @ 100 mls/hr Q12HR IV 01/23/22 21:00 02/22/22 20:59 01/24/22 10:02 Acetaminophen (Tylenol) 1,000 mg Q6H PRN PO PAIN 1 - 3 01/23/22 19:30 02/22/22 19:29 Zolpidem Tartrate (Ambien) 5 mg HS PRN PO INSOMNIA 01/23/22 19:30 02/22/22 19:29 Morphine Sulfate (Morphine Sulfate) 4 mg Q4H PRN IV PAIN 7-10 01/23/22 19:30 02/22/22 19:29 01/24/22 06:48 Ketorolac Tromethamine (Toradol) 15 mg Q6H ONCE IV 01/23/22 19:30 01/23/22 19:32 DC 01/23/22 19:48 Ondansetron HCl (Zofran) 4 mg Q4H PRN IV NAUSEA / VOMITING 01/23/22 20:00 02/22/22 19:59 Ketorolac Tromethamine (Toradol) 30 mg STK-MED ONCE .ROUTE 01/23/22 19:45 01/23/22 19:45 DC Sodium Chloride 100 ml @ ud STK-MED ONCE IV 01/23/22 20:02 01/23/22 20:02 DC Sodium Chloride 250 ml @ ud STK-MED ONCE .ROUTE 01/23/22 21:06 01/23/22 21:07 DC Potassium Chloride 100 ml @ 50 mls/hr OT ONCE IV 01/24/22 08:00 01/24/22 09:59 DC 01/24/22 08:50 Metronidazole 100 ml @ 100 mls/hr Q8H IV 01/24/22 08:30 02/23/22 08:29 01/24/22 08:49 Sodium Chloride 100 ml @ ud STK-MED ONCE IV 01/24/22 08:44 01/24/22 08:44 DC Sodium Chloride (Sodium Chloride Irr Bag) 1,000 ml STK-MED ONCE IR 01/24/22 11:47 01/24/22 11:48 DC Sodium Chloride (Sodium Chloride Irr Bottle) 1,000 ml STK-MED ONCE IR 01/24/22 11:47 01/24/22 11:48 DC Lidocaine/ Epinephrine (Xylocaine 1%-Epi 1:100,000) 30 ml STK-MED ONCE .ROUTE 01/24/22 11:48 01/24/22 11:48 DC Bupivacaine HCl (Sensorcaine-Mpf 0.25% Vial) 2.5 mg STK-MED ONCE .ROUTE 01/24/22 11:48 01/24/22 11:48 DC Lidocaine HCl (Xylocaine 2% 5ml Vial) 500 mg STK-MED ONCE .ROUTE 01/24/22 11:56 01/24/22 11:56 DC Ondansetron HCl (Zofran) 4 mg STK-MED ONCE .ROUTE 01/24/22 11:56 01/24/22 11:56 DC Hydromorphone HCl (Dilaudid) 2 mg STK-MED ONCE .ROUTE 01/24/22 11:56 01/24/22 11:56 DC Fentanyl Citrate (Sublimaze) 50 mcg STK-MED ONCE .ROUTE 01/24/22 11:57 01/24/22 11:57 DC Propofol (Diprivan) 200 mg STK-MED ONCE IV 01/24/22 11:57 01/24/22 11:57 DC Rocuronium [place] (Zemuron) 100 mg STK-MED ONCE IV 01/24/22 11:57 01/24/22 11:58 DC Acetaminophen 100 ml @ ud STK-MED ONCE IV 01/24/22 11:58 01/24/22 11:58 DC Ketorolac Tromethamine (Toradol) 30 mg STK-MED ONCE .ROUTE 01/24/22 11:58 01/24/22 11:58 DC Sodium Chloride (Sodium Chloride Irr Bag) 1,000 ml STK-MED ONCE IR 01/24/22 13:39 01/24/22 13:40 DC Physical exam: Patient is awake alert and oriented x3. EOMI. PERRLA. Neck supple without lymphadenopathy or bruit. Heart is regular rate and rhythm. Lungs are clear to auscultation bilaterally. Spine is nontender to palpation. No tenderness to palpation or percussion of the CVA areas bilaterally. Good pulses in extremities with good range of motion. Abdomen is soft with good bowel sounds. She is slightly tender in the epigastric region, and significantly tender in the right upper quadrant.She does have some voluntary guarding, but no peritoneal signs. Cranial nerves II through XII appear to be grossly intact. No focal deficits. Assessment/plan: Patient has acute cholecystitis with cholelithiasis/sludge. This was discussed with her in detail. We discussed the risk, benefits, alternatives and complications associated with surgical intervention. I described laparoscopic versus open procedures with her. The procedures were described in detail. She was made aware of the risks, benefits, alternatives and complications associated with the procedure. She was made aware that the risks include, but are not limited to: NE, , dysrhythmia, bleeding, infection, hematoma, seroma, biloma, need for drain or T-tube, possibility requiring ERCP, possibility of requiring cholangiogram, and pancreatitis. She was made aware that these risks and wished to proceed with laparoscopic cholecystectomy. Just prior to the procedure, her did arrive. The consent was discussed with him also, and he concurred with proceeding with the procedure Dr. Jackson is aware Scheduled Escitalopram Oxalate (Escitalopram Oxalate), 1 TAB PO DAILY, (Reported) Lisinopril (Lisinopril), 1 TAB PO DAILY, (Reported) VITALS REVIEW VITALS Vital Sign - Last 24 Hours 01/23/22 01/23/22 01/23/22 01/23/22 16:29 16:29 16:29 17:44 Temp 98.0 98.0 98.0 98.0 Pulse 61 61 61 68 Resp 20 20 20 20 B/P (MAP) 136/77 (96) 119/74 (89) Pulse Ox 99 99 99 O2 Delivery Room Air* Room Air* O2 Flow Rate 0 0 FiO2 21 21 01/23/22 01/23/22 01/23/22 01/23/22 18:45 19:45 20:05 20:28 Temp 98.0 98.0 98.2 Pulse 90 66 61 Resp 16 16 20 B/P (MAP) 136/101 (113) 137/71 (93) 136/112 (120) Pulse Ox 97 97 97 O2 Delivery Room Air* Room Air* Room Air* Room Air O2 Flow Rate 0 0 0 FiO2 21 21 01/24/22 01/24/22 01/24/22 01/24/22 00:23 04:10 08:06 10:28 Temp 98.0 97.9 97.8 Pulse 58 64 60 Resp 18 18 16 B/P (MAP) 125/78 (94) 133/77 (95) 132/67 (88) Pulse Ox 98 98 96 O2 Delivery Room Air* Room Air* Room Air* Room Air O2 Flow Rate 0 0 0 FiO2 21 01/24/22 01/24/22 10:37 12:49 Temp 99.1 Pulse 65 Resp 16 B/P (MAP) Pulse Ox 96 O2 Delivery Room Air* O2 Flow Rate 0 FiO2 21 LABS LAB RESULTS Laboratory Tests Test 01/23/22 16:23 01/23/22 16:45 01/24/22 00:00 01/24/22 04:00 Urine Collection Type UNKNOWN Urine Color YELLOW Urine Appearance CLEAR Urine Bilirubin NEGATIVE (NEGATIVE) Urine Ketones NEGATIVE (NEGATIVE) Urine Specific [place] 1.025 (1.005-1.030) Urine pH 5.5 (4.5-8.0) Urine Protein NEGATIVE (NEGATIVE) Urine Urobilinogen 0.2 E.U./dL (0.2) Urine Nitrate NEGATIVE (NEGATIVE) Urine Leukocyte Esterase TRACE (NEGATIVE) Urine Glucose (Auto)(UA) NEGATIVE (NEGATIVE) Urine Blood 2+ (NEGATIVE) Urine RBC 2-5 RBC/HPF (NONE SEEN) Urine WBC 0-2 WBC/HPF (0-2) Urine Squamous Epithelial Cells FEW (<=FEW) Urine Bacteria NONE SEEN (NONE SEEN) White Blood Count 14.2 10^3/uL (4.5-11.0) 9.9 10^3/uL (4.5-11.0) Red Blood Count 5.34 10^6/uL (4.00-5.20) 5.08 10^6/uL (4.00-5.20) Hemoglobin 14.3 g/dL (12.0-15.0) 13.6 g/dL (12.0-15.0) Hematocrit 44.7 % (36.0-46.0) 44.1 % (36.0-46.0) Mean Corpuscular Volume 83.7 fL (78-100) 86.8 fL (78-100) Mean Corpuscular Hemoglobin 26.8 pg (26-34) 26.8 pg (26-34) Mean Corpuscular Hemoglobin Concent 32.0 g/dL (33-36.5) 30.8 g/dL (33-36.5) Red Cell Distribution Width 13.3 % (11.5-14.5) 13.7 % (11.5-14.5) Platelet Count 287 10^3/uL (150-400) 280 10^3/uL (150-400) Mean Platelet Volume 9.6 fL (7.8-11.0) 10.1 fL (7.8-11.0) Neutrophils (%) (Auto) 89.6 % (41.0-85.0) 64.7 % (41.0-85.0) Lymphocytes (%) (Auto) 7.1 % (24.0-44.0) 23.5 % (24.0-44.0) Monocytes (%) (Auto) 3.0 % (5.0-12.0) 8.6 % (5.0-12.0) Neutrophils # (Auto) 12.7 10^3/uL (1.8-7.7) 6.4 10^3/uL (1.8-7.7) Lymphocytes # (Auto) 1.01 10^3/uL1 (1.0-4.8) 2.33 10^3/uL1 (1.0-4.8) Monocytes # (Auto) 0.4 10^3/uL (0.3-0.8) 0.9 10^3/uL (0.3-0.8) Absolute Immature Granulocyte (auto 0.02 10^3 u/L (0-2) 0.02 10^3 u/L (0-2) Absolute Eosinophils (auto) 0.0 10^3/uL (0.0-0.2) 0.3 10^3/uL (0.0-0.2) Immature Granulocytes % 0.10 % (0.00-0.50) 0.20 % (0.00-0.50) Eosinophils % 0.1 % (0.0-5.0) 2.8 % (0.0-5.0) Basophils % 0.1 % (0.0-0.2) 0.2 % (0.0-0.2) Basophils # 0.0 10^3/uL (0.0-0.1) 0.0 10^3/uL (0.0-0.1) Prothrombin Time 10.2 SEC (9.1-11.5) Prothrombin Time INR (Non-Therap) 1.0 Activated Partial Thromboplast Time 23.7 SEC (22.5-33.1) Sodium Level 140 mmol/L (132-145) 141 mmol/L (132-145) Potassium Level 3.5 mmol/L (3.6-5.2) 3.3 mmol/L (3.6-5.2) Chloride Level 105.0 mmol/L (96-109) 107.0 mmol/L (96-109) Carbon Dioxide Level 28.5 mmol/L (20.0-32) 26.8 mmol/L (20.0-32) Anion Gap 10.0 10.5 Blood Urea Nitrogen 8 mg/dL (7-18) 8 mg/dL (7-18) Creatinine 0.85 mg/dL (0.59-1.40) 0.71 mg/dL (0.59-1.40) Estimated GFR () 89.2 (>/=60) 109.8 (>/=60) Est GFR (CKD-EPI)(Non-Afr [place]) 73.7 (>/=60) 90.7 (>/=60) BUN/Creatinine Ratio 9.0 11.0 Glucose Level 118 mg/dL (70-110) 95 mg/dL (70-110) Calcium Level 9.1 mg/dL (8.4-10.5) 8.6 mg/dL (8.4-10.5) Total Bilirubin 0.5 mg/dL (0.2-1.0) Aspartate Amino Transf (AST/SGOT) 25 U/L (0-35) Alanine Aminotransferase (ALT/SGPT) 40 U/L (12-78) Alkaline Phosphatase 85 U/L (50-136) Total Protein 7.5 g/dL (6.4-8.2) Albumin 3.8 g/dL (3.4-5.0) Globulin 3.7 Albumin/Globulin Ratio 1.027 Amylase Level 42 U/L (25-115) Lipase 97 U/L (114-286) Serum HCG, Qualitative NEGATIVE (NEGATIVE) SARS-CoV-2 Antigen (Rapid) NEGATIVE (NEGATIVE) WATSON ROGERS MD Jan 24, 2022 14:20
--- NOTE | 2022-01-24 14:32 | PRM.OPH ---
OPERATIVE REPORT OPERATIVE REPORT Indications: Patient with abdominal pain that started yesterday, in the epigastric and right upper quadrant region. There is also some nausea and vomiting. She was admitted through the emergency room, and found to have acute cholecystitis with cholelithiasis/sludge. Preoperative diagnosis: Acute cholecystitis with sludge/cholelithiasis Postoperative diagnosis: Same, largely distended gallbladder with palpable stones, as well as sludge, very edematous and thickened wall. Procedure: Laparoscopic cholecystectomy, and placement of Surgicel Surgeon: Marion Rogers MD Anesthesia: Marcelo Lobato, KELLY CLAY local Specimen: Gallbladder Implants: Surgicel in the gallbladder fossa EBL: 50 cc Complications: None Technique of procedure After the procedures of the been discussed with the patient and her , and consent received, the patient was taken the operating room and placed on operative table in supine position. Adequate analgesia and anesthesia were administered, along with supplemental oxygen. The patient was adequately sedated and anesthetized, the general endotracheal tube was placed without incident. The area of the abdomen was prepped and draped in the usual sterile fashion. A timeout was observed by all staff in the room to verify we had the appropriate patient and planned procedure. Marker was used to outline incision just above and below the umbilicus. A position was chosen in the right upper quadrant inferior to the costal margin, and approximately the midclavicular line. This area was injected with local anesthetic, and a small incision was made with an 11 blade. Utilizing an Optiview trocar and a 5 mm scope, this trocar was gently passed into the abdomen until entry was made into the peritoneum. The scope And obturator were removed, and CO2 insufflation was used to achieve a pneumoperitoneum. The scope was placed back down into the abdomen, and the abdomen examined. The gallbladder was seen to be rather edematous and enlarged. Attention was turned to the umbilicus, and the area just above the umbilicus was injected with local anesthetic. A small incision was made with 11 blade. Under direct vision, the 1012 mm trocar was carefully Passed through the fascia and into the peritoneum. The 5 mm scope was then removed and a 10 mm scope placed through the umbilical port. Under direct vision, and utilizing a similar technique, local was injected, small incision was made with 11 blade, and 5 mm trochars were placed just to the left of midline in The left upper quadrant, and in the far lateral right position. There is no evidence of injury to the abdominal wall or intra-abdominal contents during placement of any of the trochars.Screws used to lift the gallbladder, which was rather difficult, since the Wall was rather edematous and inflamed. This was lifted up towards the shoulder. Rather significant adhesions were noted of old omentum to the undersurface the gallbladder. These were peeled down with use of el ectrocautery, to the triangle of [place]. The tissue was rather edematous, and some dissection was carried out with pulsation of water, and use of the suction marine engineering consultant.Some adventitial tissue was taken down along with the adhesions, toward the triangle of Mariama. I was able to isolate the cystic duct and artery. Both were rather small. They were surrounded and from erika rounding tissue utilizing the [place] dissector, and minimal amount of electrocautery. Clips were placed x3 proximally and x1 distally on the duct and that was and sharply divided. There was no evidence of any leakage. Later on, during the dissection, and a drop or 2 of green bile was noted. A second clip was placed, which seem to stop any leakage. Similarly, 2 clips were placed proximally 1 distally on the artery, which was then divided. Utilizing electrocautery and first the [place] dissector and then the L-hook, the gallbladder was from the gallbladder fossa. Removing the gallbladder from the gallbladder fossa took some time, since it was rather engorged, and the wall itself was very edematous. Due to the engorgement and inflammatory nature, there is some rather large blood vessels, that required significantly more attention, for adequate hemostasis. The gallbladder was ultimately removed from the gallbladder fossa without any disruption of the wall. The 10 mm scope was then removed, and a 5 mm scope was placed through the left upper quadrant port. An Endobag was passed through the umbilical port, and the gallbladder was placed in the bag. Imaging was obtained. The bag was then closed and the apparatus withdrawn. The suture was secured extracorporeally. The 5 mm scope was removed, and a 10 mm scope was placed back through the umbilical port.The liver was lifted, and irrigation/aspiration was carried out. There was no significant ongoing bleeding. The clips on the duct and artery were intact, without evidence of bleed or leak. As irrigation was carried out, the irrigant was rather clear, but the gallbladder fossa was somewhat wet. Although there were no distinct bleeding points, it was rather inflamed. I opted to use a sheet of Surgicel, cut into several smaller pieces, placed in the gallbladder fossa. The actually did stay white for some time, to indicate there was no ongoing bleeding. The patient had been in the head up and rolled to the left position. She was now flattened out. Any other fluid, whether it be a minimal amount of blood or irrigation fluid was extracted as much as possible utilizing the suction. After checking all the trochars, the umbilical trocar was removed, including the Endobag containing the gallbladder. There was some leakage externally of bile, but none within the abdomen. The other trochars were then all removed. Pressure was applied to the abdomen to relieve all pneumoperitoneum. All wounds were irrigated. Utilizing S retractors and Shasha's, the fascia at the umbilicus was lifted. This fascia was closed with 0 Vicryl on a UR 6 in a [id number] fashion. All wounds irrigated again. Interrupted 4-0 Monocryl was placed in the deep dermis in a buried and interrupted fashion at all incisions. Dermabond was then applied. Patient appeared to tolerate the procedure well. All counts were correct at the end of the procedure. MARION ROGERS MD Jan 24, 2022 14:32
[2022-01-24] MEDS ORDERED: ZOFRAN IV PRN (15:00)
[2022-01-24] MEDS ORDERED: HNS 1000ML/KCL 20MEQ 1,000 ML IV SCH (15:00)
--- NOTE | 2022-01-24 15:15 | NUR ---
RETURN RETURNED FROM OR AWAKE AND ALERT. CONNECTED TO BEDSIDE MONITORING. @ BEDSIDE. DISCUSSED PLAN OF CARE. DENIES NEEDS QUESTIONS OR CONCERNS. NO S/S OF ACUTE DISTRESS NOTED.
[2022-01-24] MEDS ORDERED: TRAM50TA PO (16:21)
--- NOTE | 2022-01-24 16:31 | PRM.DC ---
Discharge Summary Reason for Visit: Abdominal pain Hospital Course 41-year-old Female with past medical history of hypertension comes here with right lower quadrant abdominal pain that started The day before admission. No nausea vomiting. No diarrhea. No sick contact. No trauma. She took Prilosec at home thinking that that was causing her symptoms but it did not help. Symptoms are moderate and progressive and worse with movement. Work-up in the emergency room including CT abdomen pelvis showed Cholelithiasis with acute cholecystitis. Surgeon consulted. Patient is on IV antibiotics. Patient is being in the hospital for further management. Patient underwent laparoscopic cholecystectomy. Case discussed with surgeon. Patient was kept postoperatively for close monitoring. Patient to be discharged home today.Patient cleared by surgeon for discharge. Medication reconciliation completed. Patient to follow with surgeon per surgeon instructions. Patient to report back to the emergency room if she she start experiencing severe pain fever or chills nausea or vomiting. Patient discharged in stable condition. Activity, diet and follow-up as per surgeon. Patient will be discharged home. Exam/Vitals Vital Signs Date Time Temp Pulse Resp B/P (MAP) Pulse Ox O2 Delivery O2 Flow Rate FiO2 01/24/22 20:01 64 12 93 Nasal Canula 01/24/22 18:00 64 12 120/64 (82) 93 Nasal Cannula* 2 28 01/24/22 17:45 67 14 118/66 (83) 92 Nasal Cannula* 2 28 01/24/22 17:30 67 10 114/70 (85) 91 Nasal Cannula* 2 28 01/24/22 17:15 75 11 124/78 (93) 93 Nasal Cannula* 2 28 01/24/22 17:00 66 12 125/71 (89) 99 Nasal Cannula* 2 28 01/24/22 16:45 62 11 130/69 (89) 99 Nasal Cannula* 2 28 01/24/22 16:30 65 16 125/64 (84) 99 Room Air* 2 N/A Nasal Cannula* 01/24/22 16:15 97.7 63 16 121/66 (84) 99 Room Air* 2 N/A Nasal Cannula* 01/24/22 16:00 63 14 119/65 (83) 99 Room Air* 2 N/A Nasal Cannula* 01/24/22 15:45 67 13 129/57 (81) 97 Room Air* 2 N/A Nasal Cannula* 01/24/22 15:30 66 15 139/77 (97) 99 Room Air* 2 N/A Nasal Cannula* 01/24/22 15:15 98.1 68 16 142/71 (94) 94 Nasal Canula 3.00 01/24/22 15:15 3.00 01/24/22 15:05 69 16 134/71 (92) 100 Nasal Canula 3.00 01/24/22 14:55 97.1 68 15 132/86 (101) 99 Nasal Canula 2.00 01/24/22 14:45 70 15 136/69 (91) 97 Nasal Canula 2.00 01/24/22 14:35 80 15 141/76 (97) 93 Room Air 01/24/22 14:25 65 15 121/65 (83) 100 Non-Rebreather 10.00 01/24/22 14:15 62 15 127/49 (75) 100 Non-Rebreather 10.00 01/24/22 14:04 10.00 01/24/22 14:04 97.4 68 15 106/60 (75) 99 Non-Rebreather 10.00 01/24/22 12:49 99.1 01/24/22 10:37 65 16 96 Room Air* 0 01/24/22 10:28 Room Air 01/24/22 08:06 97.8 60 16 132/67 (88) 96 Room Air* 0 01/24/22 04:10 97.9 64 18 133/77 (95) 98 Room Air* 0 01/24/22 00:23 98.0 58 18 125/78 (94) 98 Room Air* 0 01/23/22 20:28 Room Air 01/23/22 20:05 98.2 61 20 136/112 (120) 97 Room Air* 0 01/23/22 19:45 98.0 66 16 137/71 (93) 97 Room Air* 0 01/23/22 18:45 98.0 90 16 136/101 (113) 97 Room Air* 0 01/23/22 17:44 98.0 68 20 119/74 (89) 99 Room Air* 0 01/23/22 16:29 98.0 61 20 99 01/23/22 16:29 98.0 61 20 136/77 (96) 99 Room Air* 0 01/23/22 16:29 98.0 61 20 General: Alert, Oriented X3, No acute distress HEENT: Atraumatic, PERRLA Neck: Supple, No JVD Lungs: Clear to auscultation, Normal air movement Heart: Regular rate, Normal S1, Normal S2 Abdomen: Normal bowel sounds, Soft Extremities: No clubbing, No cyanosis Skin: No significant lesion Neuro: Normal speech, Normal tone Psych/Mental Status: Mental status NL, Mood NL Scheduled Escitalopram Oxalate (Escitalopram Oxalate), 1 TAB PO DAILY, (Reported) Lisinopril (Lisinopril), 1 TAB PO DAILY, (Reported) Scheduled PRN Tramadol Hcl (Tramadol Hcl), 50 MG PO Q6HR PRN for PAIN 4 - 6 Sepsis Evaluation @ Discharge 01/24/22 10:22 Course Sepsis Screening Results: Posi: NEGATIVE Sepsis Qualifier/Stage: NO DEFINITE RISK Duration or Total Time Spent w: 40 minutes including EMR Vitals & review Data Vital Sign - Last 24 Hours 01/23/22 01/23/22 01/23/22 01/23/22 17:44 18:45 19:45 20:05 Temp 98.0 98.0 98.0 98.2 Pulse 68 90 66 61 Resp 20 16 16 20 B/P (MAP) 119/74 (89) 136/101 (113) 137/71 (93) 136/112 (120) Pulse Ox 99 97 97 97 O2 Delivery Room Air* Room Air* Room Air* Room Air* O2 Flow Rate 0 0 0 0 FiO2 01/23/22 01/24/22 01/24/22 01/24/22 20:28 00:23 04:10 08:06 Temp 98.0 97.9 97.8 Pulse 58 64 60 Resp 18 18 16 B/P (MAP) 125/78 (94) 133/77 (95) 132/67 (88) Pulse Ox 98 98 96 O2 Delivery Room Air Room Air* Room Air* Room Air* O2 Flow Rate 0 0 0 FiO2 01/24/22 01/24/22 01/24/22 01/24/22 10:28 10:37 12:49 14:04 Temp 99.1 97.4 Pulse 65 68 Resp 16 15 B/P (MAP) 106/60 (75) Pulse Ox 96 99 O2 Delivery Room Air Room Air* Non-Rebreather O2 Flow Rate 0 10.00 FiO2 21 01/24/22 01/24/22 01/24/22 01/24/22 14:04 14:15 14:25 14:35 Pulse 62 65 80 Resp 15 15 15 B/P (MAP) 127/49 (75) 121/65 (83) 141/76 (97) Pulse Ox 100 100 93 O2 Delivery Non-Rebreather Non-Rebreather Room Air O2 Flow Rate 10.00 10.00 10.00 01/24/22 01/24/22 01/24/22 01/24/22 14:45 14:55 15:05 15:15 Temp 97.1 Pulse 70 68 69 Resp 15 15 16 B/P (MAP) 136/69 (91) 132/86 (101) 134/71 (92) Pulse Ox 97 99 100 O2 Delivery Nasal Canula Nasal Canula Nasal Canula O2 Flow Rate 2.00 2.00 3.00 3.00 01/24/22 15:15 Temp 98.1 Pulse 68 Resp 16 B/P (MAP) 142/71 (94) Pulse Ox 94 O2 Delivery Nasal [place] O2 Flow Rate 3.00 Laboratory Tests Test 01/23/22 16:23 01/23/22 16:45 01/24/22 00:00 01/24/22 04:00 Urine Collection Type UNKNOWN Urine Color YELLOW Urine Appearance CLEAR Urine Bilirubin NEGATIVE Urine Ketones NEGATIVE Urine Specific [place] 1.025 Urine pH 5.5 Urine Protein NEGATIVE Urine Urobilinogen 0.2 E.U./dL Urine Nitrate NEGATIVE Urine Leukocyte Esterase TRACE Urine Glucose (Auto)(UA) NEGATIVE Urine Blood 2+ Urine RBC 2-5 RBC/HPF Urine WBC 0-2 WBC/HPF Urine Squamous Epithelial Cells FEW Urine Bacteria NONE SEEN White Blood Count 14.2 10^3/uL 9.9 10^3/uL Red Blood Count 5.34 10^6/uL 5.08 10^6/uL Hemoglobin 14.3 g/dL 13.6 g/dL Hematocrit 44.7 % 44.1 % Mean Corpuscular Volume 83.7 fL 86.8 fL Mean Corpuscular Hemoglobin 26.8 pg 26.8 pg Mean Corpuscular Hemoglobin Concent 32.0 g/dL 30.8 g/dL Red Cell Distribution Width 13.3 % 13.7 % Platelet Count 287 10^3/uL 280 10^3/uL Mean Platelet Volume 9.6 fL 10.1 fL Neutrophils (%) (Auto) 89.6 % 64.7 % Lymphocytes (%) (Auto) 7.1 % 23.5 % Monocytes (%) (Auto) 3.0 % 8.6 % Neutrophils # (Auto) 12.7 10^3/uL 6.4 10^3/uL Lymphocytes # (Auto) 1.01 10^3/uL1 2.33 10^3/uL1 Monocytes # (Auto) 0.4 10^3/uL 0.9 10^3/uL Absolute Immature Granulocyte (auto 0.02 10^3 u/L 0.02 10^3 u/L Absolute Eosinophils (auto) 0.0 10^3/uL 0.3 10^3/uL Immature Granulocytes % 0.10 % 0.20 % Eosinophils % 0.1 % 2.8 % Basophils % 0.1 % 0.2 % Basophils # 0.0 10^3/uL 0.0 10^3/uL Prothrombin Time 10.2 SEC Prothrombin Time INR (Non-Therap) 1.0 Activated Partial Thromboplast Time 23.7 SEC Sodium Level 140 mmol/L 141 mmol/L Potassium Level 3.5 mmol/L 3.3 mmol/L Chloride Level 105.0 mmol/L 107.0 mmol/L Carbon Dioxide Level 28.5 mmol/L 26.8 mmol/L Anion Gap 10.0 10.5 Blood Urea Nitrogen 8 mg/dL 8 mg/dL Creatinine 0.85 mg/dL 0.71 mg/dL Estimated GFR () 89.2 109.8 Est GFR (CKD-EPI)(Non-Afr [place]) 73.7 90.7 BUN/Creatinine Ratio 9.0 11.0 Glucose Level 118 mg/dL 95 mg/dL Calcium Level 9.1 mg/dL 8.6 mg/dL Total Bilirubin 0.5 mg/dL Aspartate Amino Transf (AST/SGOT) 25 U/L Alanine Aminotransferase (ALT/SGPT) 40 U/L Alkaline Phosphatase 85 U/L Total Protein 7.5 g/dL Albumin 3.8 g/dL Globulin 3.7 Albumin/Globulin Ratio 1.027 Amylase Level 42 U/L Lipase 97 U/L Serum HCG, Qualitative NEGATIVE SARS-CoV-2 Antigen (Rapid) NEGATIVE Current Medications Medications (Trade) Dose Ordered Sig/Yessica PRN Reason Start Time Stop Time Status Last Admin Acetaminophen (Tylenol) 1,000 mg Q6H PRN PAIN 1 - 3 01/23/22 19:30 02/22/22 19:29 Cefepime HCl 1 gm/ Sodium Chloride 100 ml @ 100 mls/hr Q12HR 01/23/22 21:00 02/22/22 20:59 01/24/22 10:02 Metronidazole 100 ml @ 100 mls/hr Q8H 01/24/22 08:30 02/23/22 08:29 01/24/22 15:40 Morphine Sulfate (Morphine Sulfate) 4 mg Q4H PRN PAIN 7-10 01/23/22 19:30 02/22/22 19:29 01/24/22 15:41 Ondansetron HCl (Zofran) 4 mg Q4H PRN NAUSEA / VOMITING 01/23/22 20:00 02/22/22 19:59 01/24/22 15:40 Ondansetron HCl (Zofran) 4 mg Q4H PRN nausea 01/24/22 15:00 02/23/22 14:59 Potassium Chloride/Sodium Chloride 1,000 ml @ 125 mls/hr Q8H 01/24/22 15:00 02/23/22 14:59 01/24/22 15:54 Zolpidem Tartrate (Ambien) 5 mg HS PRN INSOMNIA 01/23/22 19:30 02/22/22 19:29 LEVEL 1 SEPSIS INFECTION CRITE: ABX Therapy, Abdominal Pain LEVEL 2-SIRS (LIST ALL THAT AP: [id number] Cardiovascular Evidence: Not Assessed or None Hematologic Evidence: None/Not assessed Hepatic Evidence: None/Not assessed Metabolic Evidence: None/Not assessed Neurological Evidence: None/Not assessed Respiratory Evidence: None/Not assessed Renal Evidence: None/Not assessed O2 Sat by Pulse Oximetry: 94 Oxygen Flow Rate: 3.00 Plan Problems: (1) Acute cholecystitis ICD Code: K81.0 - Acute cholecystitis SNOMED: 00770153 (2) Hypertension ICD Code: I10 - Essential (primary) hypertension SNOMED: 14160999 Plan 41-year-old Female with past medical history of hypertension comes here with right lower quadrant abdominal pain that started The day before admission. No nausea vomiting. No diarrhea. No sick contact. No trauma. She took Prilosec at home thinking that that was causing her symptoms but it did not help. Symptoms are moderate and progressive and worse with movement. Work-up in the emergency room including CT abdomen pelvis showed Cholelithiasis with acute cholecystitis. Surgeon consulted. Patient is on IV antibiotics. Patient is being in the hospital for further management. Patient underwent laparoscopic cholecystectomy. Case discussed with surgeon. Patient was kept postoperatively for close monitoring. Patient to be discharged home today.Patient cleared by surgeon for discharge. Medication reconciliation completed. Patient to follow with surgeon per surgeon instructions. Patient to report back to the emergency room if she she start experiencing severe pain fever or chills nausea or vomiting. Patient discharged in stable condition. Activity, diet and follow-up as per surgeon. Patient will be discharged home. ANNE SON MD Jan 24, 2022 16:31
[2022-01-24] MEDS ORDERED: ULTRAM PO PRN (18:00)
--- NOTE | 2022-01-24 20:03 | NUR ---
DISCHARGE EDUCATION SESSION HELD WITH CLIENT AND SPOUSE, WRITTEN EDUCATION MATERIAL WITH DISCHARGE INSTRUCTIONS, FOLLOW UP AND NEW MEDICATION GIVEN TO CLIENT. VERBALIZED UNDERSTANDING. NO ACUTE APPARENT DISTRESS NOTED, DENIES PAIN 0/10 ON NUMERICAL PAIN SCALE. BELONGINGS SENT HOME WITH CLIENT. LEFT AMBULATORY WITH THIS NURSE AND SPOUSE, LEFT IN PERSONAL VEHICLE TO HOME WITH SPOUSE. RELINQUISHED CARE.
--- NOTE | 2022-01-27 13:12 | NUR ---
DISCHARGE UPDATE - UPDATE TANYA CHACON NP FAXED COMPLETE CLINICALS TO TANYA CHACON NP @[phone] WITH FAX NOTIFICATION OF NO APPT MADE DUE TO SDC PROCEDURE. FAX CONFIRMATION CONFIRMED COMPLETE.
--- NOTE | 2022-01-31 16:01 | CNH ---
General Chief Complaint: Abdomen Pain Stated Complaint: DX:ACUTE CHOLECYSTITIS Time seen by MD: 19:11 Source: patient Exam Limitations: no limitations History of Present Illness Initial Comments History of present illness 41 years old female who was presented at the ER with abdominal pain. Pain started at 630 this morning and woke her up. It was in the right side of the abdomen. It was associated with reflux. She took antiacid but vomited the tablet. She was nauseous. Pain became progressive and intolerable so that she came to the ER. No fever. No recent weight loss. No jaundice. Urine looked concentrated to her. No pruritus. She never had such episode of pain before. Past medical history: Hypertension Depression and anxiety. Medications: Patient does not have list of her antihypertensive and antidepressant medications. She called her to get the names and they will be texted later Allergies: 1. Penicillin gives her hives and fever 2. hydrocodone which gives her hives as well Social history: , does not work, came to the ER with her daughter, does not smoke or chew tobacco. She drinks alcohol once every few weeks when her is in town. She denies abusing drugs. Family history: Noncontributory. Review of systems: No fever chills or recent loss of weight. No headaches loss of balance motor or sensory deficit. No chest pain or palpitations or orthopnea. No shortness of breath cough or expectoration. No urinary frequency or dysuria. No pruritus or skin lesions. Depression currently on treatment. On examination: Awake and alert, lying on the ER bed, seems to be in mild distress with tearful eyes. Sclera is anicteric. No palpable cervical or supraclavicular masses. Chest is clear on auscultation. Heart sounds 1 or 2 are normal. Abdomen is obese not distended soft tenderness on deep palpation in the right upper quadrant i.e. positive [place] sign, bowel sounds are hypoactive. Lower extremities warm no edema Laboratory Tests Test 01/23/22 16:23 01/23/22 16:45 Urine Collection Type UNKNOWN Urine Color YELLOW Urine Appearance CLEAR Urine Bilirubin NEGATIVE Urine Ketones NEGATIVE Urine Specific [place] 1.025 Urine pH 5.5 Urine Protein NEGATIVE Urine Urobilinogen 0.2 E.U./dL Urine Nitrate NEGATIVE Urine Leukocyte Esterase TRACE Urine Glucose (Auto)(UA) NEGATIVE Urine Blood 2+ Urine RBC 2-5 RBC/HPF Urine WBC 0-2 WBC/HPF Urine Squamous Epithelial Cells FEW Urine Bacteria NONE SEEN White Blood Count 14.2 10^3/uL Red Blood Count 5.34 10^6/uL Hemoglobin 14.3 g/dL Hematocrit 44.7 % Mean Corpuscular Volume 83.7 fL Mean Corpuscular Hemoglobin 26.8 pg Mean Corpuscular Hemoglobin Concent 32.0 g/dL Red Cell Distribution Width 13.3 % Platelet Count 287 10^3/uL Mean Platelet Volume 9.6 fL Neutrophils (%) (Auto) 89.6 % Lymphocytes (%) (Auto) 7.1 % Monocytes (%) (Auto) 3.0 % Neutrophils # (Auto) 12.7 10^3/uL Lymphocytes # (Auto) 1.01 10^3/uL1 Monocytes # (Auto) 0.4 10^3/uL Absolute Immature Granulocyte (auto 0.02 10^3 u/L Absolute Eosinophils (auto) 0.0 10^3/uL Immature Granulocytes % 0.10 % Eosinophils % 0.1 % Basophils % 0.1 % Basophils # 0.0 10^3/uL Prothrombin Time 10.2 SEC Prothrombin Time INR (Non-Therap) 1.0 Activated Partial Thromboplast Time 23.7 SEC Sodium Level 140 mmol/L Potassium Level 3.5 mmol/L Chloride Level 105.0 mmol/L Carbon Dioxide Level 28.5 mmol/L Anion Gap 10.0 Blood Urea Nitrogen 8 mg/dL Creatinine 0.85 mg/dL Estimated GFR () 89.2 Est GFR (CKD-EPI)(Non-Afr [place]) 73.7 BUN/Creatinine Ratio 9.0 Glucose Level 118 mg/dL Calcium Level 9.1 mg/dL Total Bilirubin 0.5 mg/dL Aspartate Amino Transf (AST/SGOT) 25 U/L Alanine Aminotransferase (ALT/SGPT) 40 U/L Alkaline Phosphatase 85 U/L Total Protein 7.5 g/dL Albumin 3.8 g/dL Globulin 3.7 Albumin/Globulin Ratio 1.027 Amylase Level 42 U/L Lipase 97 U/L Current Medications Medications (Trade) Dose Ordered Sig/Yessica Route PRN Reason Start Time Stop Time Status Last Admin Dose Admin Morphine Sulfate (Morphine Sulfate) 4 mg STAT STAT IV 01/23/22 16:39 01/23/22 16:42 DC 01/23/22 17:01 Ondansetron HCl (Zofran) 4 mg Q4H ONCE IV 01/23/22 17:00 01/23/22 17:01 DC 01/23/22 17:01 Ondansetron HCl (Zofran) 4 mg STK-MED ONCE .ROUTE 01/23/22 16:49 01/23/22 16:50 DC Morphine Sulfate (Morphine Sulfate) 2 mg STK-MED ONCE .ROUTE 01/23/22 16:51 01/23/22 16:52 DC Cefepime HCl 1 gm/ Sodium Chloride 100 ml @ 100 mls/hr Q12HR IV 01/23/22 21:00 02/22/22 20:59 Acetaminophen (Tylenol) 1,000 mg Q6H PRN PO PAIN 1 - 3 01/23/22 19:30 02/22/22 19:29 Zolpidem Tartrate (Ambien) 5 mg HS PRN PO INSOMNIA 01/23/22 19:30 02/22/22 19:29 Morphine Sulfate (Morphine Sulfate) 4 mg Q4H PRN IV pain 01/23/22 19:30 02/22/22 19:29 Ketorolac Tromethamine (Toradol) 15 mg Q6H ONCE IV 01/23/22 19:30 01/23/22 19:31 Imaging: CT scan of the abdomen without oral or IV contrast shows multiple gallstones. Assessment: Rachelle Whitaker is a 41 years old female who presents with symptoms and signs of acute cholecystitis. She has mild leukocytosis. She has multiple gallstones on CT scan. Plan: Admit to observation service. Analgesia as needed. N.p.o. from midnight. Antiemetics as needed. Continue IV antibiotics, cefepime as prescribed in the ER. I explained to the patient the risks and benefits of laparoscopic cholecystectomy and she agreed to undergo the operation. I will sign the patient to Dr. Mendoza who is going to take over the surgical service tomorrow at 7 AM Timing/Duration: other (As in HPI) Severity/Quality: other (As in HPI) Radiation: other (As in HPI) Associated Symptoms: other (As in HPI) Exacerbated by: other (As in HPI) Relieved By: other (As in HPI) Allergies: Coded Allergies: Penicillins (Verified Allergy, Intermediate, Hives, 02/15/18) codeine (Verified Allergy, Intermediate, 02/15/18) Home Meds Reported Medications Lisinopril (LISINOPRIL) 20 Mg Tablet, 1 TAB PO DAILY, #30 TAB 5 Refills 07/27/21 Vital Signs First Vital Signs Date Time Temp Pulse Resp B/P (MAP) Pulse Ox O2 Delivery O2 Flow Rate FiO2 01/23/22 16:29 98.0 61 20 01/23/22 16:29 136/77 (96) 99 Room Air* 0 21 Last Vital Signs Date Time Temp Pulse Resp B/P (MAP) Pulse Ox O2 Delivery O2 Flow Rate FiO2 01/23/22 17:44 98.0 68 20 119/74 (89) 99 Room Air* 0 21 Past Medical History Medical History: hypertension Surgical History: no surgical history LMP (females 10-50): this week Social History Smoking: non-smoker Alcohol Use: occassionally Drug Use: none Physical Exam General Appearance: Mild Distress HEENT: PERRL/EOMI, Normal ENT Inspection, TMs Normal, Pharynx Normal Neck: Non-Tender, Full Range of Motion, Supple, Normal Inspection Respiratory: chest non-tender, lungs clear, normal breath sounds, no respiratory distress, no accessory muscle use Cardiovascular: Normal Peripheral Pulses, Regular Rate, Rhythm, No Edema, No Gallop, No JVD, No Murmur Gastrointestinal: Normal Bowel Sounds, Non Tender, Soft Extremities: Normal Range of Motion, Non-Tender, Normal Inspection, No Pedal Edema, No Calf Tenderness, Normal Capillary Refill, Pelvis Stable Skin: Normal Color, Warm/Dry Results/Orders Results/Orders Orders - SHLOMO GRAVES MD Cbc With Auto Diff (01/23/22 16:39) Comprehensive Metabolic Panel (01/23/22 16:39) Amylase (01/23/22 16:39) Lipase (01/23/22 16:39) PT (01/23/22 16:39) Partial Thromboplastin Time. (01/23/22 16:39) Urinalysis (01/23/22 16:39) Saline Lock (01/23/22 16:39) Morphine Sulfate (Morphine Sulfate) (01/23/22 16:39) Ondansetron Hcl/Pf (Zofran) (01/23/22 17:00) Ondansetron Hcl/Pf (Zofran) (01/23/22 16:49) Morphine Sulfate (Morphine Sulfate) (01/23/22 16:51) Ct Abd/Pel With Iv Contrast (01/23/22 17:23) Blood Culture (01/23/22 19:01) Cefepime Hcl (Maxipime) (01/23/22 21:00) Vital Signs Date Time Temp Pulse Resp B/P (MAP) Pulse Ox O2 Delivery O2 Flow Rate FiO2 01/23/22 17:44 98.0 68 20 119/74 (89) 99 Room Air* 0 21 01/23/22 16:29 98.0 61 20 99 01/23/22 16:29 98.0 61 20 136/77 (96) 99 Room Air* 0 21 01/23/22 16:29 98.0 61 20 Administered Medications Medications (Trade) Dose Ordered Sig/Yessica Route PRN Reason Start Time Stop Time Status Last Admin Dose Admin Morphine Sulfate (Morphine Sulfate) 4 mg STAT STAT IV 01/23/22 16:39 01/23/22 16:42 DC 01/23/22 17:01 4 MG Ondansetron HCl (Zofran) 4 mg Q4H ONCE IV 01/23/22 17:00 01/23/22 17:01 DC 01/23/22 17:01 4 MG Laboratory Tests Test 01/23/22 16:23 01/23/22 16:45 Urine Collection Type UNKNOWN Urine Color YELLOW Urine Appearance CLEAR Urine Bilirubin NEGATIVE (NEGATIVE) Urine Ketones NEGATIVE (NEGATIVE) Urine Specific [place] 1.025 (1.005-1.030) Urine pH 5.5 (4.5-8.0) Urine Protein NEGATIVE (NEGATIVE) Urine Urobilinogen 0.2 E.U./dL (0.2) Urine Nitrate NEGATIVE (NEGATIVE) Urine Leukocyte Esterase TRACE (NEGATIVE) H Urine Glucose (Auto)(UA) NEGATIVE (NEGATIVE) Urine Blood 2+ (NEGATIVE) H Urine RBC 2-5 RBC/HPF (NONE SEEN) Urine WBC 0-2 WBC/HPF (0-2) Urine Squamous Epithelial Cells FEW (<=FEW) Urine Bacteria NONE SEEN (NONE SEEN) White Blood Count 14.2 10^3/uL (4.5-11.0) H Red Blood Count 5.34 10^6/uL (4.00-5.20) H Hemoglobin 14.3 g/dL (12.0-15.0) Hematocrit 44.7 % (36.0-46.0) Mean Corpuscular Volume 83.7 fL (78-100) Mean Corpuscular Hemoglobin 26.8 pg (26-34) Mean Corpuscular Hemoglobin Concent 32.0 g/dL (33-36.5) L Red Cell Distribution Width 13.3 % (11.5-14.5) Platelet Count 287 10^3/uL (150-400) Mean Platelet Volume 9.6 fL (7.8-11.0) Neutrophils (%) (Auto) 89.6 % (41.0-85.0) H Lymphocytes (%) (Auto) 7.1 % (24.0-44.0) L Monocytes (%) (Auto) 3.0 % (5.0-12.0) L Neutrophils # (Auto) 12.7 10^3/uL (1.8-7.7) H Lymphocytes # (Auto) 1.01 10^3/uL1 (1.0-4.8) Monocytes # (Auto) 0.4 10^3/uL (0.3-0.8) Absolute Immature Granulocyte (auto 0.02 10^3 u/L (0-2) Absolute Eosinophils (auto) 0.0 10^3/uL (0.0-0.2) Immature Granulocytes % 0.10 % (0.00-0.50) Eosinophils % 0.1 % (0.0-5.0) Basophils % 0.1 % (0.0-0.2) Basophils # 0.0 10^3/uL (0.0-0.1) Prothrombin Time 10.2 SEC (9.1-11.5) Prothrombin Time INR (Non-Therap) 1.0 Activated Partial Thromboplast Time 23.7 SEC (22.5-33.1) Sodium Level 140 mmol/L (132-145) Potassium Level 3.5 mmol/L (3.6-5.2) L Chloride Level 105.0 mmol/L (96-109) Carbon Dioxide Level 28.5 mmol/L (20.0-32) Anion Gap 10.0 Blood Urea Nitrogen 8 mg/dL (7-18) Creatinine 0.85 mg/dL (0.59-1.40) Estimated GFR () 89.2 (>/=60) Est GFR (CKD-EPI)(Non-Afr [place]) 73.7 (>/=60) BUN/Creatinine Ratio 9.0 Glucose Level 118 mg/dL (70-110) H Calcium Level 9.1 mg/dL (8.4-10.5) Total Bilirubin 0.5 mg/dL (0.2-1.0) Aspartate Amino Transferase (AST) 25 U/L (0-35) Alanine Aminotransferase (ALT) 40 U/L (12-78) Alkaline Phosphatase 85 U/L (50-136) Total Protein 7.5 g/dL (6.4-8.2) Albumin 3.8 g/dL (3.4-5.0) Globulin 3.7 Albumin/Globulin Ratio 1.027 Amylase Level 42 U/L (25-115) Lipase 97 U/L (114-286) L ER DEPART Departure Time of Disposition: 20:00 Disposition: 09 ADMITTED INPATIENT (Admitted to med surg) Impression: Primary Impression: Acute cholecystitis Condition: Stable Referrals: MARCI YORK APRN, FNP-C (PCP) PRIMARY CARE PROVIDER Duration or Time Spent with Pa: 40 minutes including EMR Return to Work/School Can a patient return to work?: No REENA HARDY MD Jan 23, 2022 19:43 << >> [place]
== END 2022-01-24 20:00 | disposition home or self-care (01) ==
LOC: ER 16:09 → UNDOADMIN 19:23 → ICU 19:23 → EDBEDREQ 19:24 → EDBEDREQTM 19:24 → SDC 01-24 14:49 → UNDODISIN 01-24 19:48 → SDC 01-24 20:00
PROVIDERS: ATTEND Surgery
DX: K80.12 Calculus of gallbladder with acute and chronic cholecystitis without obstruction (principal); K82.8 Other specified diseases of gallbladder; I10 Essential (primary) hypertension; F41.9 Anxiety disorder, unspecified; F32.A Depression, unspecified; K21.9 Gastro-esophageal reflux disease without esophagitis; Z79.01 Long term (current) use of anticoagulants; Z88.0 Allergy status to penicillin; Z88.8 Allergy status to other drugs, medicaments and biological substances; Z98.890 Other specified postprocedural states
CPT/HCPCS: 36415 ×2; 47562; 74177; 80048; 80053; 81001; 82150; 83690; 84703; 85025 ×2; 85610; 85730; 87040 ×2; 87426; 88304; 99285; A4217; A4649; J0131; J1100; J1170; J1885 ×2; J2001; J2270 ×2; J2405 ×3; J3010; J3490 ×5; J7030; J7050; J7120 ×3; Q9965; G0378; J0692; J3480